=== PATIENT | male | born 1945 | race Caucasian/White ===

== ENCOUNTER 2020-07-29 15:17 | Inpatient (IN) | payer OTHER, SELFPAY ==
[2020-07-29] VITALS (11 sets, daily range): BP systolic 73–117; BP diastolic 46–65; PULSE 58–98; RESP 12–20; TEMP 35.9–40; O2SAT 91–100; BMI 21.8
--- NOTE | 2020-07-29 | XR_ITS ---
EXAMINATION: XR CHEST CLINICAL INFORMATION: Confirm central line placement COMPARISON: 07/29/2020 TECHNIQUE: Frontal view of the chest was obtained. FINDINGS: Catheter entering from the right neck terminating overlying the superior vena cava. There is no evidence for pneumothorax. Lung tucker are unchanged. Mild perihilar markings. XR/XR chest 1V IMPRESSION: Catheter tip overlying the superior vena cava. No pneumothorax
--- NOTE | 2020-07-29 15:53 | ECG_ITS ---
Test Reason : WEAKNESS Blood Pressure : / mmHG Vent. Rate : 084 BPM Atrial Rate : 093 BPM P-R Int : 000 ms QRS Dur : 078 ms QT Int : 438 ms P-R-T Axes : 000 062 -06 degrees QTc Int : 517 ms Atrial fibrillation Nonspecific T wave abnormality Abnormal ECG No previous ECGs available Referred By: Jeremy Vegas Electronically Signed By:SHELLIE SIMS MD
--- NOTE | 2020-07-29 15:53 | XR_ITS ---
EXAMINATION: XR CHEST CLINICAL INFORMATION: Weakness COMPARISON: None TECHNIQUE: AP portable view of the chest was obtained. FINDINGS: Patient status post median sternotomy. The cardiopericardial silhouette is enlarged. No evidence of pulmonary edema. No pneumothorax or pleural effusion. XR/XR chest 1V IMPRESSION: Cardiomegaly without acute parenchymal disease.
[2020-07-29 16:31] LABS: INTERNATIONAL NORM RATIO 2.3 (0.9-1.1); Prothrombin Time 27.1 SEC (10.8-13.0)
[2020-07-29 16:33] LABS: Partial Thromboplastin Time 37.4 SEC (24.1-38.0)
[2020-07-29 16:35] LABS: Hematocrit 36.3 % (42-52); Hemoglobin 11.6 g/dl (14.0-18.0); Imm Gran Abs Auto 0.02 X10*3/uL (0.00-0.03); Imm Gran Pct Auto 0.3 % (0.0-0.4); Lymphocytes Absolute Auto 0.5 X10*3/uL (1.2-4.9); Lymphocytes Percent Auto 8.3 % (20-40); MANUAL DIFF FLAG SCAN; Mean Corpuscular Hemoglobin 32.6 pg (27.0-33.0); Mean Platelet Volume 10.7 fL (9.4-12.4); Monocytes Absolute Auto 0.5 X10*3/uL (0.1-1.2); Neutrophils Absolute Auto 5.2 X10*3/uL (2.0-8.3); Neutrophils Percent Auto 83.4 % (45-73); Platelet Count 144 X10*3/uL (160-400); Red Blood Count 3.56 X10*6/uL (4.60-5.80); SCAN SMEAR FLAG 1; White Blood Count 6.3 X10*3/uL (4.8-10.8)
[2020-07-29 16:46] LABS: Alanine Aminotransferase 25 U/L (0-40); Albumin Level 3.9 g/dL (3.5-5.0); Alkaline Phosphatase 50 U/L (39-117); Anion Gap 13 (12-20); Aspartate Amino Transferase 53 U/L (5-37); Bilirubin Total 1.1 mg/dL (0.0-1.0); Blood Urea Nitrogen 35 mg/dL (9-16); Calcium 8.6 mg/dL (8.4-10.2); Carbon Dioxide 27 mmol/L (22-29); Chloride 105 mmol/L (96-108); Creatinine Clr Calc Pharmacy 51.6; Estimated Glomerular Filt Rate 52; Glucose Random 125 mg/dL (60-115); Potassium 4.1 mmol/l (3.3-5.1); Sodium 141 mmol/L (135-145); Total Protein 6.5 g/dL (6.5-8.0)
[2020-07-29 16:49] LABS: Lactic Acid 2.1 mmol/L (0.5-2.0)
[2020-07-29 16:57] LABS: Troponin-I High Sensitivity 45.3 ng/L (<3.5-35.0)
[2020-07-29 17:05] LABS: SLIDE REVIEW VERIFIED
[2020-07-29] MEDS: Acetaminophen 325 MG TABLET 975 MG PO (17:51)
[2020-07-29] MEDS: dexAMETHasone sod phosphate 4 MG/ML VIAL 6 MG IVPUSH ×2 (17:51→21:04)
[2020-07-29 18:20] LABS: Reflex Lactate? Lactic Acid Added
[2020-07-29] MEDS: 0.9 % Sodium Chloride 1,000 ML 999 ML IV (18:36)
[2020-07-29] MEDS: 0.9 % Sodium Chloride 2,000 ML 999 ML IV (19:00)
--- NOTE | 2020-07-29 19:11 | ED_ITS ---
HPI - Fever General Chief Complaint: Fever <Tiago Hartmann NP - Last Filed: 07/29/20 21:51> Stated Complaint: LOW O2SAT,+COVID PER SNF <Tiago Hartmann NP - Last Filed: 07/29/20 21:51> Time Seen by Provider: 07/29/20 15:33 <Tiago Hartmann NP - Last Filed: 07/29/20 21:51> Source: EMS <Tiago Hartmann NP - Last Filed: 07/29/20 21:51> Mode of arrival: EMS <Tiago Hartmann NP - Last Filed: 07/29/20 21:51> Limitations: altered mental status <Tiago Hartmann NP - Last Filed: 07/29/20 21:51> History of Present Illness HPI Narrative: fever and COVID positive this is a 74-year-old male who presents via EMS from [facility] manner he apparently has dementia who is at baseline confused however alert and able to do certain activities in addition to this he has history of diverticular disease, hypertension, hyperlipidemia, compression fracture of the T11/T12, dysphagia, prosthetic heart valve, cardiomyopathy with prior alcohol abuse who was sent in from the facility with complaint of fever and seeming a little more lethargic today. Patient is 1 of many other residents at this facility apparently tested positive for COVID. Patient at baseline on O2 at 2 L per EMS report. Patient is alert upon arrival and offers no complaints of pain or discomfort. His pulse oximeter bedside reads 95 he is currently on 4 L of oxygen. Transfer form with lab results for his COVID with says COVID positive 08/08/2020 Code status full code <Tiago Hartmann NP - Last Filed: 07/29/20 21:51> MD elicited complaint: fever and weakness <Tiago Hartmann NP - Last Filed: 07/29/20 21:51> Onset (ago): day(s) <Tiago Hartmann NP - Last Filed: 07/29/20 21:51> Context: sick contacts and other(s) with similar symptoms <Tiago Hartmann NP - Last Filed: 07/29/20 21:51> Relieving factors: acetaminophen <Tiago Hartmann NP - Last Filed: 07/29/20 21:51> Associated symptoms: denies other symptoms <Tiago Hartmann, [employer] - Last Filed: 07/29/20 21:51> Treatments prior to arrival fever: acetaminophen <Tiago Hartmann NP - Last Filed: 07/29/20 21:51> Related Data Home Medications: Home Medications Medication Instructions Recorded Confirmed Baby Aspirin 81 mg PO 07/29/20 Lexapro 20 mg PO 07/29/20 atorvastatin 80 mg PO 07/29/20 benzonatate 100 mg PO Q6-8H PRN 07/29/20 07/29/20 calcium carbonate-vitamin D2 1 tab PO 07/29/20 [Calcium + Vitamin D] lisinopril 2.5 mg PO 07/29/20 <Tiago Hartmann NP - Last Filed: 07/29/20 21:51> Allergies/Adverse Reactions: Allergies Allergy/AdvReac Type Severity Reaction Status Date / Time No Known Allergies Allergy Verified 07/29/20 15:52 <Tiago Hartmann NP - Last Filed: 07/29/20 21:51> Review of Systems Review of Systems: states no pain <Tiago Hartmann NP - Last Filed: 07/29/20 21:51> Yes Unobtainable due to mental condition <Tiago Hartmann NP - Last Filed: 07/29/20 21:51> Neurologic: Reports confusion <Tiago Hartmann NP - Last Filed: 07/29/20 21:51> Psychiatric: Psychiatric: Reports confusion <Tiago Hartmann NP - Last Filed: 07/29/20 21:51> [facility] Past Medical History Medical History: Medical History (Updated 07/29/20 @ 21:50 by Tiago Hartmann NP) Atrial fibrillation Cardiomyopathy Compression fracture of T11 vertebra Compression fracture of T12 vertebra Dementia Diverticulosis Dysphagia Hyperlipidemia Hypertension Prosthetic heart valve clot Urinary incontinence, functional Vitamin D deficiency <Tiago Hartmann NP - Last Filed: 07/29/20 21:51> Social History Social History: Social History Alcohol intake: never Smoking Status: Former smoker Smoked in Last 30 Days: No Use of substances other than those prescribed or required for medical reasons: No Advance Directives: No Advance Directives Information Provided: Yes <Tiago Hartmann NP - Last Filed: 07/29/20 21:51> Physical Exam Vital Signs: Vital Signs: Last Vital Signs Temp 97.2 F 07/29/20 22:59 Pulse 77 07/29/20 22:59 Resp 15 07/29/20 22:59 BP 83/46 L 07/29/20 22:59 Pulse Ox 95 07/29/20 22:59 Body Mass Index 21.8 reviewed <Tiago Hartmann NP - Last Filed: 07/29/20 21:51> Vital Signs: Last Vital Signs Temp 97.2 F 07/29/20 22:59 Pulse 77 07/29/20 22:59 Resp 15 07/29/20 22:59 BP 83/46 L 07/29/20 22:59 Pulse Ox 95 07/29/20 22:59 Body Mass Index 21.8 <Radha Pisano MD - Last Filed: 07/29/20 23:44> Const: General: cooperative, confusion and lethargic; No acute distress or intoxicated appearing <Tiago Hartmann NP - Last Filed: 07/29/20 21:51> Nutritional Appearance: cachectic <Tiago Hartmann NP - Last Filed: 07/29/20 21:51> Orientation/consciousness: confusion and lethargic <Tiago Hartmann NP - Last Filed: 07/29/20 21:51> Limitations: other limitations ( dementia) <Tiago Hartmann NP - Last Filed: 07/29/20 21:51> HENMT: Head: Yes normal to inspection <Tiago Hartmann NP - Last Filed: 07/29/20 21:51> Ears: hearing grossly normal bilaterally <Tiago Hartmann NP - Last Filed: 07/29 21:51> Eyes: General: appearance normal, both eyes and all related structures <Tiago Hartmann NP - Last Filed: 07/29/20 21:51> Visual Tucker: normal visual tucker by confrontation <Tiago Hartmann NP - Last Filed: 07/29/20 21:51> Neck: Neck: Yes normal visual inspection and No tender <Tiago Hartmann NP - Last Filed: 07/29/20 21:51> Thyroid: Thyroid normal <Tiago Hartmann NP - Last Filed: 07/29/20 21:51> Chest: Chest palpation & inspection: normal inspection of the chest <Tiago Hartmann NP - Last Filed: 07/29/20 21:51> Resp: Effort & Inspection: normal respiratory effort <[facility] Hartmann, [employer] - Last Filed: 07/29/20 21:51> Cardio: Jugular venous distension: no JVD <[facility] Hartmann, [employer] - Last Filed: 07/29/20 21:51> GI: Inspection: Yes normal to inspection <[facility] Hartmann, [employer] - Last Filed: 07/29/20 21:51> Percussion: Yes normal to percussion <[facility] Mary Kate [employer] - Last Filed: 07/29/20 21:51> Auscultation: normal bowel sounds <[facility] Hartmann, [employer] - Last Filed: 07/29/20 21:51> : General: Yes no CVA tenderness <[facility] Mary Kate [employer] - Last Filed: 07/29/20 21:51> Back/Spine/Pelvis: Back: no CVA tenderness <[facility] Mary Kate [employer] - Last Filed: 07/29/20 21:51> Skin: General skin exam: no rashes or lesions noted <[facility] Mary Kate [employer] - Last Filed: 07/29/20 21:51> Neuro: General: confusion <Tiago Mary Kate [employer] - Last Filed: 07/29/20 21:51> Extrem: General: Yes normal to inspection <[facility] Hartmann, [employer] - Last Filed: 07/29/20 21:51> Course Course Course Narrative: in review 74-year-old male presenting with fever and lethargy in the setting of positive COVID today at the facility with other residents testing positive. Patient at baseline at 2 L requiring slightly more oxygen now at 4 L to maintain his oxygen above 92% otherwise he is demented and offers no other complaints. Febrile upon arrival septic workup initiated including lactic acid and blood work with primary source viral in etiology. Will treat with gradual IV fluids and antipyretics p.r.n.. <Tiago Hartmann NP - Last Filed: 07/29/20 21:51> patient had already been admitted to the hospitalist. Dr Blu Anderson informed me that the patient already had 3 L of normal saline, patient's blood pressure is in the low 80s. Patient is being transferred to intensive care unit, I inserted a central line in the right IJ, patient tolerated well the procedure. Patient was started on pressors, Levophed. <Radha Pisano MD - Last Filed: 07/29/20 23:44> Reevaluation(s) Reevaluation #1: 1553 chest x-ray shows no evidence of acute pulmonary edema or parenchymal, will disease. Positive cardiomegaly. Remainder labs still pending. BP on the softer side fluid resuscitation in progress. <Tiago Hartmann NP - Last Filed: 07/29/20 21:51> Reevaluation #2: Fever remains high at 103 will be given additional fluids, Motrin p.o.. Was placed on a cooling blanket with Washburn catheter with core temperature monitoring. Patient remains relatively comfortable does not seem to be any acute distress. Aside from the low BP his respiratory status remains stable. meets sepsis criteria with the tachycardia, hypertension, fever. Causative etiology is most likely viral in etiology from COVID-19 as this was confirmed today and not bacterial. <Tiago Hartmann NP - Last Filed: 07/29/20 21:51> Reevaluation #3: Blood pressure improving. Was given dexamethasone for COVID-19, CT of the chest ordered given the continued high fever rule out superimposed pathology. <Tiago Hartmann NP - Last Filed: 07/29/20 21:51> Consultations Consultation #1: 1999 Sepsis focused exam completed. Case discussed with hospitalist for admission request further BP monitoring if remains stable can go to a telemetry unit. <Tiago Hartmann NP - Last Filed: 07/29/20 21:51> Consultation #2: 3133 BP has remained stable in the ED last blood pressure was 117/52. Patient will be admitted to hospitalist services. <Tiago Hartmann NP - Last Filed: 07/29/20 21:51> Procedures Central Line Placement Right IJ: Time Out Performed: Yes <Radha Pisano MD - Last Filed: 07/29/20 23:44> Patient Placed on Monitor/Pulse Ox: Yes <Radha Pisano MD - Last Filed: 07/29/20 23:44> MD Prep: mask, gown and gloves <Radha Pisano MD - Last Filed: 07/29/20 23:44> Central Line Prep: Chlorhexidine scrub <Radha Pisano MD - Last Filed: 07/29/20 23:44> Local Anesthetic: lidocaine 1% <Radha Pisano MD - Last Filed: 07/29/20 23:44> Amount of anesthesia used (mL): 5 <Radha Pisano MD - Last Filed: 07/29/20 23:44> Ultrasound Used for Placement: Yes <Radha Pisano MD - Last Filed: 07/29/20 23:44> Central Line Lumen Inserted: triple <Radha Pisano MD - Last Filed: 07/29/20 23:44> Post Procedure: sutured in place, good blood return, all ports aspirated, flushed, capped and sterile dressing applied <Radha Pisano MD - Last Filed: 07/29/20 23:44> Post Procedure X-Ray: tip of catheter in good position and no pneumothorax seen <Radha Pisano MD - Last Filed: 07/29/20 23:44> Patient Tolerated Procedure: well <Radha Pisano MD - Last Filed: 07/29/20 23:44> Complications: none <Radha Pisano MD - Last Filed: 07/29/20 23:44> MDM - Fever Differential Diagnosis Differential diagnosis: Likely viral infection ( COVID-19), sepsis and influenza <Tiago Hartmann NP - Last Filed: 07/29/20 21:51> Medical Records Attestation: I reviewed the patient's medical records. <Tiago Hartmann NP - Last Filed: 07/29/20 21:51> Medical records narrative: patient has about 20 pages of records transferred from the facility including advanced directives, transfer she with COVID status, medication and past medical history which was all reviewed. <Tiago Hartmann NP - Last Filed: 1 09/29/19 21:51> Lab Data Attestation: I reviewed the patient's lab results. <Tiago Hartmann NP - Last Filed: 12/13 21:51> Result diagrams: : 07/29/20 16:10 07/29/20 16:11 <Tiago Hartmann NP - Last Filed: 07/29/20 21:51> Labs: Lab Results 07/29/20 07/29/20 07/29/20 Range/Units 16:10 16:11 16:11 WBC 6.3 (4.8-10.8) X10*3/uL RBC 3.56 L (4.60-5.80) X10*6/uL Hgb 11.6 L (14.0-18.0) g/dl Hct 36.3 L (42-52) % MCV 102.0 H (80-98) fL MCH 32.6 (27.0-33.0) pg MCHC 32.0 (31.0-36.0) g/dl RDW 13.0 (11.0-16.0) % Plt Count 144 L (160-400) X10*3/uL MPV 10.7 (9.4-12.4) fL Immature Gran % (Auto) 0.3 (0.0-0.4) % Neut % (Auto) 83.4 H (45-73) % Lymph % (Auto) 8.3 L (20-40) % [place] % (Auto) 8.0 (2-11) % Eos % (Auto) 0.0 (0-4) % Baso % (Auto) 0.0 (0-2) % Lymph # (Auto) 0.5 L (1.2-4.9) X10*3/uL [place] # (Auto) 0.5 (0.1-1.2) X10*3/uL Eos # (Auto) 0.0 (0.0-0.4) X10*3/uL Baso # (Auto) 0.0 (0.0-0.2) X10*3/uL Abs Immat Gran (auto) 0.02 (0.00-0.03) X10*3/uL Absolute Neuts (auto) 5.2 (2.0-8.3) X10*3/uL Absolute Nucleated RBC 0.000 (0.0-0.012) X10*3/uL Nucleated RBC % (auto) 0.0 (0.0-0.2) /100WBC Smear Tech's Comments VERIFIED PT 27.1 H (10.8-13.0) SEC INR 2.3 H (0.9-1.1) APTT 37.4 (24.1-38.0) SEC Sodium 141 (135-145) mmol/L Potassium 4.1 (3.3-5.1) mmol/l Chloride 105 (96-108) mmol/L Carbon Dioxide 27 (22-29) mmol/L Anion Gap 13 (12-20) BUN 35 H (9-16) mg/dL Creatinine 1.35 (0.5-1.4) mg/dL Estim Creat Clear Calc 51.6 Estimated GFR 52 Random Glucose 125 H (60-115) mg/dL Lactic Acid (0.5-2.0) mmol/L Lactic Acid Fup @ 2Hr (0.5-2.0) mmol/L Calcium 8.6 (8.4-10.2) mg/dL Total Bilirubin 1.1 H (0.0-1.0) mg/dL AST 53 H (5-37) U/L ALT 25 (0-40) U/L Alkaline Phosphatase 50 (39-117) U/L Troponin I High Sens (<3.5-35.0) ng/L Total Protein 6.5 (6.5-8.0) g/dL Albumin 3.9 (3.5-5.0) g/dL Urine Color Urine Appearance Urine pH (5.0-8.0) Ur Specific [place] (1.005-1.025) Urine Protein (NEG-TRACE) MG/DL Urine Glucose (UA) (NEG) MG/DL Urine Ketones (NEG) MG/DL Urine Blood (NEG) Urine Nitrite (NEG) Ur Leukocyte Esterase (NEG) Urine RBC (0) /HPF Urine WBC (0-4) /HPF Ur Squamous Epith Cells /LPF Amorphous Sediment /LPF Urine Bacteria /LPF 07/29/20 07/29/20 07/29/20 Range/Units 16:11 16:11 19:00 WBC (4.8-10.8) X10*3/uL RBC (4.60-5.80) X10*6/uL Hgb (14.0-18.0) g/dl Hct (42-52) % MCV (80-98) fL MCH (27.0-33.0) pg MCHC (31.0-36.0) g/dl RDW (11.0-16.0) % Plt Count (160-400) X10*3/uL MPV (9.4-12.4) fL Immature Gran % (Auto) (0.0-0.4) % Neut % (Auto) (45-73) % Lymph % (Auto) (20-40) % [place] % (Auto) (2-11) % Eos % (Auto) (0-4) % Baso % (Auto) (0-2) % Lymph # (Auto) (1.2-4.9) X10*3/uL [place] # (Auto) (0.1-1.2) X10*3/uL Eos # (Auto) (0.0-0.4) X10*3/uL Baso # (Auto) (0.0-0.2) X10*3/uL Abs Immat Gran (auto) (0.00-0.03) X10*3/uL Absolute Neuts (auto) (2.0-8.3) X10*3/uL Absolute Nucleated RBC (0.0-0.012) X10*3/uL Nucleated RBC % (auto) (0.0-0.2) /100WBC Smear Tech's Comments PT (10.8-13.0) SEC INR (0.9-1.1) APTT (24.1-38.0) SEC Sodium (135-145) mmol/L Potassium (3.3-5.1) mmol/l Chloride (96-108) mmol/L Carbon Dioxide (22-29) mmol/L Anion Gap (12-20) BUN (9-16) mg/dL Creatinine (0.5-1.4) mg/dL Estim Creat Clear Calc Estimated GFR Random Glucose (60-115) mg/dL Lactic Acid 2.1 H* (0.5-2.0) mmol/L Lactic Acid Fup @ 2Hr 1.2 (0.5-2.0) mmol/L Calcium (8.4-10.2) mg/dL Total Bilirubin (0.0-1.0) mg/dL AST (5-37) U/L ALT (0-40) U/L Alkaline Phosphatase (39-117) U/L Troponin I High Sens 45.3 H (<3.5-35.0) ng/L Total Protein (6.5-8.0) g/dL Albumin (3.5-5.0) g/dL Urine Color Urine Appearance Urine pH (5.0-8.0) Ur Specific [place] (1.005-1.025) Urine Protein (NEG-TRACE) MG/DL Urine Glucose (UA) (NEG) MG/DL Urine Ketones (NEG) MG/DL Urine Blood (NEG) Urine Nitrite (NEG) Ur Leukocyte Esterase (NEG) Urine RBC (0) /HPF Urine WBC (0-4) /HPF Ur Squamous Epith Cells /LPF Amorphous Sediment /LPF Urine Bacteria /LPF 07/29/20 07/29/20 Range/Units 19:38 19:38 WBC (4.8-10.8) X10*3/uL RBC (4.60-5.80) X10*6/uL Hgb (14.0-18.0) g/dl Hct (42-52) % MCV (80-98) fL MCH (27.0-33.0) pg MCHC (31.0-36.0) g/dl RDW (11.0-16.0) % Plt Count (160-400) X10*3/uL MPV (9.4-12.4) fL Immature Gran % (Auto) (0.0-0.4) % Neut % (Auto) (45-73) % Lymph % (Auto) (20-40) % [place] % (Auto) (2-11) % Eos % (Auto) (0-4) % Baso % (Auto) (0-2) % Lymph # (Auto) (1.2-4.9) X10*3/uL [place] # (Auto) (0.1-1.2) X10*3/uL Eos # (Auto) (0.0-0.4) X10*3/uL Baso # (Auto) (0.0-0.2) X10*3/uL Abs Immat Gran (auto) (0.00-0.03) X10*3/uL Absolute Neuts (auto) (2.0-8.3) X10*3/uL Absolute Nucleated RBC (0.0-0.012) X10*3/uL Nucleated RBC % (auto) (0.0-0.2) /100WBC Smear Tech's Comments PT (10.8-13.0) SEC INR (0.9-1.1) APTT (24.1-38.0) SEC Sodium (135-145) mmol/L Potassium (3.3-5.1) mmol/l Chloride (96-108) mmol/L Carbon Dioxide (22-29) mmol/L Anion Gap (12-20) BUN (9-16) mg/dL Creatinine (0.5-1.4) mg/dL Estim Creat Clear Calc Estimated GFR Random Glucose (60-115) mg/dL Lactic Acid (0.5-2.0) mmol/L Lactic Acid Fup @ 2Hr (0.5-2.0) mmol/L Calcium (8.4-10.2) mg/dL Total Bilirubin (0.0-1.0) mg/dL AST (5-37) U/L ALT (0-40) U/L Alkaline Phosphatase (39-117) U/L Troponin I High Sens 45.7 H (<3.5-35.0) ng/L Total Protein (6.5-8.0) g/dL Albumin (3.5-5.0) g/dL Urine Color YELLOW Urine Appearance CLEAR Urine pH 5.5 (5.0-8.0) Ur Specific [place] >= 1.030 H (1.005-1.025) Urine Protein TRACE (NEG-TRACE) MG/DL Urine Glucose (UA) NEG (NEG) MG/DL Urine Ketones NEG (NEG) MG/DL Urine Blood NEG (NEG) Urine Nitrite NEG (NEG) Ur Leukocyte Esterase NEG (NEG) Urine RBC 0-2 (0) /HPF Urine WBC 0 (0-4) /HPF Ur Squamous Epith Cells NONE /LPF Amorphous Sediment 1+ /LPF Urine Bacteria NONE /LPF <Tiago Hartmann NP - Last Filed: 07/29/20 21:51> Lab Results 07/29/20 07/29/20 07/29/20 Range/Units 16:10 16:11 16:11 WBC 6.3 (4.8-10.8) X10*3/uL RBC 3.56 L (4.60-5.80) X10*6/uL Hgb 11.6 L (14.0-18.0) g/dl Hct 36.3 L (42-52) % MCV 102.0 H (80-98) fL MCH 32.6 (27.0-33.0) pg MCHC 32.0 (31.0-36.0) g/dl RDW 13.0 (11.0-16.0) % Plt Count 144 L (160-400) X10*3/uL MPV 10.7 (9.4-12.4) fL Immature Gran % (Auto) 0.3 (0.0-0.4) % Neut % (Auto) 83.4 H (45-73) % Lymph % (Auto) 8.3 L (20-40) % [place] % (Auto) 8.0 (2-11) % Eos % (Auto) 0.0 (0-4) % Baso % (Auto) 0.0 (0-2) % Lymph # (Auto) 0.5 L (1.2-4.9) X10*3/uL [place] # (Auto) 0.5 (0.1-1.2) X10*3/uL Eos # (Auto) 0.0 (0.0-0.4) X10*3/uL Baso # (Auto) 0.0 (0.0-0.2) X10*3/uL Abs Immat Gran (auto) 0.02 (0.00-0.03) X10*3/uL Absolute Neuts (auto) 5.2 (2.0-8.3) X10*3/uL Absolute Nucleated RBC 0.000 (0.0-0.012) X10*3/uL Nucleated RBC % (auto) 0.0 (0.0-0.2) /100WBC Smear Tech's Comments VERIFIED PT 27.1 H (10.8-13.0) SEC INR 2.3 H (0.9-1.1) APTT 37.4 (24.1-38.0) SEC Sodium 141 (135-145) mmol/L Potassium 4.1 (3.3-5.1) mmol/l Chloride 105 (96-108) mmol/L Carbon Dioxide 27 (22-29) mmol/L Anion Gap 13 (12-20) BUN 35 H (9-16) mg/dL Creatinine 1.35 (0.5-1.4) mg/dL Estim Creat Clear Calc 51.6 Estimated GFR 52 Random Glucose 125 H (60-115) mg/dL Lactic Acid (0.5-2.0) mmol/L Lactic Acid Fup @ 2Hr (0.5-2.0) mmol/L Calcium 8.6 (8.4-10.2) mg/dL Total Bilirubin 1.1 H (0.0-1.0) mg/dL AST 53 H (5-37) U/L ALT 25 (0-40) U/L Alkaline Phosphatase 50 (39-117) U/L Troponin I High Sens (<3.5-35.0) ng/L Total Protein 6.5 (6.5-8.0) g/dL Albumin 3.9 (3.5-5.0) g/dL Urine Color Urine Appearance Urine pH (5.0-8.0) Ur Specific [place] (1.005-1.025) Urine Protein (NEG-TRACE) MG/DL Urine Glucose (UA) (NEG) MG/DL Urine Ketones (NEG) MG/DL Urine Blood (NEG) Urine Nitrite (NEG) Ur Leukocyte Esterase (NEG) Urine RBC (0) /HPF Urine WBC (0-4) /HPF Ur Squamous Epith Cells /LPF Amorphous Sediment /LPF Urine Bacteria /LPF 07/29/20 07/29/20 07/29/20 Range/Units 16:11 16:11 19:00 WBC (4.8-10.8) X10*3/uL RBC (4.60-5.80) X10*6/uL Hgb (14.0-18.0) g/dl Hct (42-52) % MCV (80-98) fL MCH (27.0-33.0) pg MCHC (31.0-36.0) g/dl RDW (11.0-16.0) % Plt Count (160-400) X10*3/uL MPV (9.4-12.4) fL Immature Gran % (Auto) (0.0-0.4) % Neut % (Auto) (45-73) % Lymph % (Auto) (20-40) % [place] % (Auto) (2-11) % Eos % (Auto) (0-4) % Baso % (Auto) (0-2) % Lymph # (Auto) (1.2-4.9) X10*3/uL [place] # (Auto) (0.1-1.2) X10*3/uL Eos # (Auto) (0.0-0.4) X10*3/uL Baso # (Auto) (0.0-0.2) X10*3/uL Abs Immat Gran (auto) (0.00-0.03) X10*3/uL Absolute Neuts (auto) (2.0-8.3) X10*3/uL Absolute Nucleated RBC (0.0-0.012) X10*3/uL Nucleated RBC % (auto) (0.0-0.2) /100WBC Smear Tech's Comments PT (10.8-13.0) SEC INR (0.9-1.1) APTT (24.1-38.0) SEC Sodium (135-145) mmol/L Potassium (3.3-5.1) mmol/l Chloride (96-108) mmol/L Carbon Dioxide (22-29) mmol/L Anion Gap (12-20) BUN (9-16) mg/dL Creatinine (0.5-1.4) mg/dL Estim Creat Clear Calc Estimated GFR Random Glucose (60-115) mg/dL Lactic Acid 2.1 H* (0.5-2.0) mmol/L Lactic Acid Fup @ 2Hr 1.2 (0.5-2.0) mmol/L Calcium (8.4-10.2) mg/dL Total Bilirubin (0.0-1.0) mg/dL AST (5-37) U/L ALT (0-40) U/L Alkaline Phosphatase (39-117) U/L Troponin I High Sens 45.3 H (<3.5-35.0) ng/L Total Protein (6.5-8.0) g/dL Albumin (3.5-5.0) g/dL Urine Color Urine Appearance Urine pH (5.0-8.0) Ur Specific [place] (1.005-1.025) Urine Protein (NEG-TRACE) MG/DL Urine Glucose (UA) (NEG) MG/DL Urine Ketones (NEG) MG/DL Urine Blood (NEG) Urine Nitrite (NEG) Ur Leukocyte Esterase (NEG) Urine RBC (0) /HPF Urine WBC (0-4) /HPF Ur Squamous Epith Cells /LPF Amorphous Sediment /LPF Urine Bacteria /LPF 07/29/20 07/29/20 Range/Units 19:38 19:38 WBC (4.8-10.8) X10*3/uL RBC (4.60-5.80) X10*6/uL Hgb (14.0-18.0) g/dl Hct (42-52) % MCV (80-98) fL MCH (27.0-33.0) pg MCHC (31.0-36.0) g/dl RDW (11.0-16.0) % Plt Count (160-400) X10*3/uL MPV (9.4-12.4) fL Immature Gran % (Auto) (0.0-0.4) % Neut % (Auto) (45-73) % Lymph % (Auto) (20-40) % [place] % (Auto) (2-11) % Eos % (Auto) (0-4) % Baso % (Auto) (0-2) % Lymph # (Auto) (1.2-4.9) X10*3/uL [place] # (Auto) (0.1-1.2) X10*3/uL Eos # (Auto) (0.0-0.4) X10*3/uL Baso # (Auto) (0.0-0.2) X10*3/uL Abs Immat Gran (auto) (0.00-0.03) X10*3/uL Absolute Neuts (auto) (2.0-8.3) X10*3/uL Absolute Nucleated RBC (0.0-0.012) X10*3/uL Nucleated RBC % (auto) (0.0-0.2) /100WBC Smear Tech's Comments PT (10.8-13.0) SEC INR (0.9-1.1) APTT (24.1-38.0) SEC Sodium (135-145) mmol/L Potassium (3.3-5.1) mmol/l Chloride (96-108) mmol/L Carbon Dioxide (22-29) mmol/L Anion Gap (12-20) BUN (9-16) mg/dL Creatinine (0.5-1.4) mg/dL Estim Creat Clear Calc Estimated GFR Random Glucose (60-115) mg/dL Lactic Acid (0.5-2.0) mmol/L Lactic Acid Fup @ 2Hr (0.5-2.0) mmol/L Calcium (8.4-10.2) mg/dL Total Bilirubin (0.0-1.0) mg/dL AST (5-37) U/L ALT (0-40) U/L Alkaline Phosphatase (39-117) U/L Troponin I High Sens 45.7 H (<3.5-35.0) ng/L Total Protein (6.5-8.0) g/dL Albumin (3.5-5.0) g/dL Urine Color YELLOW Urine Appearance CLEAR Urine pH 5.5 (5.0-8.0) Ur Specific [place] >= 1.030 H (1.005-1.025) Urine Protein TRACE (NEG-TRACE) MG/DL Urine Glucose (UA) NEG (NEG) MG/DL Urine Ketones NEG (NEG) MG/DL Urine Blood NEG (NEG) Urine Nitrite NEG (NEG) Ur Leukocyte Esterase NEG (NEG) Urine RBC 0-2 (0) /HPF Urine WBC 0 (0-4) /HPF Ur Squamous Epith Cells NONE /LPF Amorphous Sediment 1+ /LPF Urine Bacteria NONE /LPF <Radha Pisano MD - Last Filed: 07/29/20 23:44> Imaging Data CT scan - chest: My impression: I personally reviewed the x-ray, Central line in place, no pneumothorax seen, radiology read pending <Radha Pisano MD - Last Filed: 07/29/20 23:44> Critical Care Time Critical Care Time Critical Care Time: Yes <Tiago Hartmann NP - Last Filed: 07/29/20 21:51> Total Critical Care Time: 65 <Tiago Hartmann NP - Last Filed: 07/29/20 21:51> Attestation: 74-year-old relatively complicated history requiring multiple re-evalua tions at bedside for monitoring of respiratory status as well as fluid resuscitation for hypertension. <Tiago Hartmann NP - Last Filed: 07/29/20 21:51> Discharge Plan Discharge Clinical Impression: COVID-19, Sepsis, Acute hypotension, Viral syndrome <Tiago Hartmann NP - Last Filed: 07/29/20 21:51> Prescriptions: No Action benzonatate 100 mg Capsule 100 mg PO Q6-8H PRN (Reason: Cough) RF: 0 Calcium + Vitamin D 600 mg calcium- 200 unit Tablet 1 tab PO RF: 0 Baby Aspirin 81 mg PO RF: 0 Lexapro 20 mg PO RF: 0 atorvastatin 80 mg PO RF: 0 lisinopril 2.5 mg PO RF: 0 <Tiago Hartmann NP - Last Filed: 07/29/20 21:51>
--- NOTE | 2020-07-29 19:12 | CT_ITS ---
EXAMINATION: CT CHEST WITHOUT CONTRAST CLINICAL INFORMATION: Fever COMPARISON: Chest radiograph earlier today TECHNIQUE: Multidetector volumetric CT imaging of the chest was done. Axial MIP volume rendering provided. Sagittal and coronal reformatted images were obtained. This CT examination was performed using dose optimization techniques as appropriate, variously including the following: *Automated exposure control *Adjustment of mA and/or kV according to patient size (this includes techniques or standardized protocols for targeted exams where dose is matched to indication/reason for exam; i.e. extremities or head) *Use of iterative reconstruction technique DLP: 374 mGy-cm FINDINGS: LUNGS: Dependent atelectasis/infiltrate is present. No suspicious lung masses are seen. MEDIASTINUM: An air-fluid level is noted in the upper esophagus. No mediastinal or hilar lymphadenopathy is seen. The heart is enlarged. An atrial clip appears to be present. Patient status post median sternotomy. PLEURA: There is no pleural effusion. No pleural mass or thickening. AXILLA: No lymphadenopathy. UPPER ABDOMEN: 2 layering small 5 mm gallstones are seen in the partially imaged gallbladder. OSSEOUS STRUCTURES: Unremarkable. CT/CT chest wo con IMPRESSION: Bibasilar infiltrates/atelectasis. Findings could be due to aspiration or infiltrate. Cardiomegaly without CHF
[2020-07-29] MEDS: Ibuprofen 800 MG TABLET PO (19:20)
[2020-07-29 19:31] LABS: ~Lactic Acid-LAB USE ONLY 1.2 mmol/L (0.5-2.0)
[2020-07-29 19:50] LABS: Glucose Urine UA NEG (NEG); Leukocyte Esterase Urine NEG (NEG); Nitrite Urine NEG (NEG); PH 5.5 (5.0-8.0); Specific Gravity - Urine >= 1.030 (1.005-1.025); Urine Blood NEG (NEG); Urine Ketones NEG (NEG); Urine Protein TRACE MG/DL (NEG-TRACE)
[2020-07-29 19:52] LABS: Appearance Urine CLEAR; Color Urine YELLOW
[2020-07-29 20:26] LABS: Troponin-I High Sensitivity 45.7 ng/L (<3.5-35.0)
[2020-07-29 20:34] LABS: Amorphous Sediment Urine 1+ /LPF; RBC Urine 0-2 /HPF (0); WBC Urine 0 /HPF (0-4)
[2020-07-29] MEDS: Piperacillin Sodium/Tazobactam 4.5 GM in 0.9 % Sodium Chloride 100 ML IV (21:11)
[2020-07-29] MEDS: vancomycin HCL 1,000 MG in 0.9 % Sodium Chloride 250 ML 270 MG IV (22:16)
--- NOTE | 2020-07-29 23:29 | PC.NURSE ---
1899: arrived on shift to find pt rectal 104. cooling blanket immedately applied. 2L NS infused via sepsis protocol. patient recived 1 L from previous shift. pa 1999: pt remains in mild [place]. Facility updated on status. Pt remains hypotesive. MLP arti aware. Full code. Pt takes nectar thickend liquids and crushed pills in apple sauce. 2029: condition remains the same. pipercillin infused. Fever now 100.6. Now more verbal I'm cold. 2129: BP improved. Pt now off cooling blanket. 2199: pt vs remain the same. 2330: Central line placed without incident
--- NOTE | 2020-07-29 23:46 | PC.NURSE ---
per okay to use central line at time.
--- NOTE | 2020-07-29 23:51 | PC.NURSE ---
2350: map 70, hr 69, spo2 100%, bp 100/55. pt taken out of [place] at this time. continuing to monitor ca=q 5 minutes for need to titrate drip.
[2020-07-30] VITALS (25 sets, daily range): BP systolic 82–136; BP diastolic 41–80; PULSE 51–70; RESP 10–54; TEMP 35–36.5; O2SAT 90–100; BMI 22.6
--- NOTE | 2020-07-30 00:02 | PC.NURSE ---
hr 58, bp 93/57, map of 67. contact made to rashida kern. mary navarrete will fax over molst and hcp form.
--- NOTE | 2020-07-30 00:13 | P.HPCC_ITS ---
History of Present Illness Date of Service: 07/30/20 Chief Complaint: Viral Sepsis/ COVID 19 Patient is a 74-year-old male with underlying history of Alzheimer's dementia who resides at a local detention, has underlying history of diverticulosis, vitamin-D deficiency, urinary incontinence, hypertension, hyperlipidemia, compression fractures of T11 and T12 vertebra raise, dysphagia, prosthetic heart valve and clot, cardiomyopathy, atrial fibrillation but I do not think he is on blood thinners. Apparently the patient tested positive at senior care facility. Reportedly the patient developed a fever at the facility and seemed more lethargic today, apparently the patient is 1 of many other residents who tested positive for COVID with questionable date of 07/09/2020, the actual test date is unknown, initial symptomatology is unknown. On arrival, the patient apparently was satting 95% on 4 L nasal cannula; when his baseline uses 2 L. In the ER, the patient had a full workup, however he was constantly hypotensive and given his fever, notable infiltrates on CT, he was given 3 L of fluids and started on vancomycin and Zosyn. Regardless the patien?s blood pressure did not improve and a central line was placed, the patient was started on Levophed. ROS: Patient is confused, unable to give a review of systems. Past Medical History: As above Past Surgical History: As above Family history: Unknown Social History: Lives at local detention ; Devices: Unknown Smoker: Former smoker Etoh hx: prior history None Drug hx: None CODE STATUS: FULL CODE Baseline Functionality: UNKNOWN Allergies: NO KNOWN DRUG ALLERGIES Home Medications: PLEASE SEE [facility] Dedicated sepsis exam done at 1:00 a.m. in the morning VS: 123/76, HEART RATE 65, RESPIRATIONS 18, O2 SAT 100% ON TEMPERATURE 96.8?. General: Alert oriented x2 not to time, no acute distress. Speaking full sentences. Speech is well articulated, thought process is coherent. Following basic commands. Skin: Intact, no lesions, edema, erythema, clubbing or cyanosis. No ulcers. HEENT: Head is normocephalic, atraumatic, pupils equal round reactive to light accommodation bilaterally. Extraocular movements unable to assess. Buccal mucosa is dry, Neck is supple without lymphadenopathy. Cardiac: Clear S1-S2, no murmurs rubs or gallops. Right IJ central line. Pulmonary: Slight wheezing bilaterally and throughout on expiration, minor rho nchi at the right base, no crackles or rales. Abdomen: Protuberant, positive bowel sounds in all 4 quadrants. Soft, nontender, no rebound or guarding. Musculoskeletal: Moving all 4 extremities upon request a major joints, there is no crepitus or tenderness. The strength is 5/5 bilaterally and throughout all 4 extremities. Gait not assessed at this point. Neurologic: As above, No focal deficits noted. Motor strength as above. Vascular: 2+ pulses upper and lower extremities distally. Capillary refill less than 2 seconds of the upper lower extremity is fingers and toes. SIGNIFICANT LABORATORY DATA: White blood cells 6.3, hemoglobin 11.6, hematocrit 36.3, platelet count 144. PTT 27.1, INR 2.3, PTT 37.4. Sodium 141, potassium 4.1, chloride 105, carbon dioxide 27, anion gap 13, BUN 35, creatinine 1.35, GFR 52, random glucose 125. Current lactic acid 1.8 (decreased from 2.1.) LFTs normal, urine negative. Troponin 45.7 REVIEW OF IMAGES: Chest x-ray Cardiomegaly without acute parenchymal disease. Catheter tip overlying the superior vena cava. No pneumothorax Chest CT Bibasilar infiltrates/atelectasis. Findings could be due to aspiration or infiltrate. Cardiomegaly without CHF EKG REVIEW: To be obtained ASSESSMENT AND PLAN: 1. Sepsis likely due to aspiration PNA vs nosocomial and less likely Viral as his COVID test reportertly was positive 07/09/20 and does not show this nasreen earance on CT. 2. COVID-19 infection likely non active 3. Acute kidney injury due to vol depletion and BEAR 4. Dehydration 5. Abnormal troponin, likely reactive 6. Essential hypertension 7. Chronic dementia 8. Chronic dysphagia increasing risk of aspiration Admit to ICU, monitor vital signs, I's and O's, COVID laboratories; will clarify the onset of symptomatology before deciding the typo treatment will give this patient; for reportedly he was tested on 07/09/2020. For now will start him on Solumedrol and nebulizers. Given the possibility of aspiration / nosocomial pneumonia, I will start him on vancomycin and Zosyn given that he comes from a senior care facility as well. IV fluids, repeat labs in the morning.Keep NPO until formal swallow eval is done. Will repeat respiratory panel including RSV, influenza, COVID. GI PROPHYLAXIS: Protonix IV DVT PROPHYLAXIS: INR is elevated, pneumatic stockings for now, will clarify his on blood thinners at the detention. Critical care time used for critical evaluation of this patient, diagnosis, treatment and coordination of care, review her records and documentation TOTAL CRITICAL CARE TIME 90 MIN . Patient's care was discussed in detail with Dr. Vegas. He is aware of all the above as well as the plan of care for this patient. Review of Systems Neurologic: Reports confusion Psychiatric: Psychiatric: Reports confusion [facility] Past Medical History Medical History (Updated 07/29/20 @ 21:50 by Tiago Hartmann NP) Atrial fibrillation Cardiomyopathy Compression fracture of T11 vertebra Compression fracture of T12 vertebra Dementia Diverticulosis Dysphagia Hyperlipidemia Hypertension Prosthetic heart valve clot Urinary incontinence, functional Vitamin D deficiency Social History Social History Household Members: Other Housing: Care Home Housing Other:: [facility] Alcohol intake: never Smoking Status: Former smoker Tobacco Type: Cigarette Smoked in Last 30 Days: No Use of substances other than those prescribed or required for medical reasons: Unable to respond Advance Directives: No Advance Directives Information Provided: Yes Advance Directives on File: No Recently lost weight without trying: Unsure Meds Allergies Allergy/AdvReac Type Severity Reaction Status Date / Time No Known Allergies Allergy Verified 07/29/20 15:52 Home Medications Medication Instructions Recorded Confirmed Type Baby Aspirin 81 mg PO 07/29/20 History Lexapro 20 mg PO 07/29/20 History atorvastatin 80 mg PO 07/29/20 History benzonatate 100 mg PO Q6-8H PRN 07/29/20 07/29/20 History calcium carbonate-vitamin D2 1 tab PO 07/29/20 History [Calcium + Vitamin D] lisinopril 2.5 mg PO 07/29/20 History Physical Exam Vital Signs: Vital Signs: Last Vital Signs Temp 96.6 F L 07/29/20 23:56 Pulse 58 07/29/20 23:56 Resp 12 07/29/20 23:56 BP 93/52 L 07/29/20 23:56 Pulse Ox 100 07/29/20 23:56 Body Mass Index 21.8 Const: General: confusion Orientation/consciousness: confusion Neuro: General: confusion Results Labs CBC and Chem 7: 07/29/20 16:10 07/29/20 16:11 Labs: Laboratory Results - last 24 hr 07/29/20 07/29/20 07/29/20 16:10 16:11 16:11 MCV 102.0 H MCH 32.6 MCHC 32.0 RDW 13.0 Plt Count 144 L MPV 10.7 Immature Gran % (Auto) 0.3 Neut % (Auto) 83.4 H Lymph % (Auto) 8.[address] [place] % (Auto) 8.0 Eos % (Auto) 0.0 Baso % (Auto) 0.0 Lymph # (Auto) 0.[address] [place] # (Auto) 0.5 Eos # (Auto) 0.0 Baso # (Auto) 0.0 Abs Immat Gran (auto) 0.02 Absolute Neuts (auto) 5.2 Absolute Nucleated RBC 0.000 Nucleated RBC % (auto) 0.0 Smear Tech's Comments VERIFIED PT 27.1 H INR 2.3 H APTT 37.4 Anion Gap 13 Estim Creat Clear Calc 51.6 Estimated GFR 52 Random Glucose 125 H Lactic Acid Lactic Acid Fup @ 2Hr Calcium 8.6 Total Bilirubin 1.1 H AST 53 H ALT 25 Alkaline Phosphatase 50 Troponin I High Sens Total Protein 6.5 Albumin 3.9 Urine Color Urine Appearance Urine pH Ur Specific [place] Urine Protein Urine Glucose (UA) Urine Ketones Urine Blood Urine Nitrite Ur Leukocyte Esterase Urine RBC Urine WBC Ur Squamous Epith Cells Amorphous Sediment Urine Bacteria 07/29/20 07/29/20 07/29/20 16:11 16:11 19:00 MCV MCH MCHC RDW Plt Count MPV Immature Gran % (Auto) Neut % (Auto) Lymph % (Auto) [place] % (Auto) Eos % (Auto) Baso % (Auto) Lymph # (Auto) [place] # (Auto) Eos # (Auto) Baso # (Auto) Abs Immat Gran (auto) Absolute Neuts (auto) Absolute Nucleated RBC Nucleated RBC % (auto) Smear Tech's Comments PT INR APTT Anion Gap Estim Creat Clear Calc Estimated GFR Random Glucose Lactic Acid 2.1 H* Lactic Acid Fup @ 2Hr 1.2 Calcium Total Bilirubin AST ALT Alkaline Phosphatase Troponin I High Sens 45.3 H Total Protein Albumin Urine Color Urine Appearance Urine pH Ur Specific [place] Urine Protein Urine Glucose (UA) Urine Ketones Urine Blood Urine Nitrite Ur Leukocyte Esterase Urine RBC Urine WBC Ur Squamous Epith Cells Amorphous Sediment Urine Bacteria 07/29/20 07/29/20 19:38 19:38 MCV MCH MCHC RDW Plt Count MPV Immature Gran % (Auto) Neut % (Auto) Lymph % (Auto) [place] % (Auto) Eos % (Auto) Baso % (Auto) Lymph # (Auto) [place] # (Auto) Eos # (Auto) Baso # (Auto) Abs Immat Gran (auto) Absolute Neuts (auto) Absolute Nucleated RBC Nucleated RBC % (auto) Smear Tech's Comments PT INR APTT Anion Gap Estim Creat Clear Calc Estimated GFR Random Glucose Lactic Acid Lactic Acid Fup @ 2Hr Calcium Total Bilirubin AST ALT Alkaline Phosphatase Troponin I High Sens 45.7 H Total Protein Albumin Urine Color YELLOW Urine Appearance CLEAR Urine pH 5.5 Ur Specific [place] >= 1.030 H Urine Protein TRACE Urine Glucose (UA) NEG Urine Ketones NEG Urine Blood NEG Urine Nitrite NEG Ur Leukocyte Esterase NEG Urine RBC 0-2 Urine WBC 0 Ur Squamous Epith Cells NONE Amorphous Sediment 1+ Urine Bacteria NONE Imaging Radiologist's Impressions: Impressions Chest X-Ray 07/29/20 00:00 IMPRESSION: Catheter tip overlying the superior vena cava. No pneumothorax Chest X-Ray 07/29/20 15:53 IMPRESSION: Cardiomegaly without acute parenchymal disease. Chest CT 07/29/20 19:12 IMPRESSION: Bibasilar infiltrates/atelectasis. Findings could be due to aspiration or infiltrate. Cardiomegaly without CHF
[2020-07-30 00:50] LABS: Lactic Acid 1.8 mmol/L (0.5-2.0)
[2020-07-30 01:14] LABS: Ferritin 764 ng/mL (20-250)
[2020-07-30 01:22] LABS: C Reactive Protein 9.94 mg/dL (< or = 0.50); Magnesium 1.8 mg/dL (1.6-2.6); Phosphorus 3.2 mg/dL (2.7-4.5)
[2020-07-30] MEDS: 0.9 % Sodium Chloride 1,000 ML 100 ML IVCONT ×3 (02:05→21:22)
[2020-07-30 02:14] LABS: Procalcitonin 12.38 ng/mL
[2020-07-30] MEDS: Pantoprazole Sodium 40 MG/10 ML VIAL IVPUSH (05:22)
[2020-07-30] MEDS: Piperacillin Sodium/Tazobactam 3.375 GM in 0.9 % Sodium Chloride 50 ML IV ×4 (05:22→23:38)
[2020-07-30] MEDS: Albuterol/Iprat 2.5/0.5MG 3 ML AMPUL.NEB INHALE (05:48)
[2020-07-30 07:05] LABS: INTERNATIONAL NORM RATIO 2.4 (0.9-1.1); PLT CLUMP 1; Prothrombin Time 29.2 SEC (10.8-13.0)
[2020-07-30 07:06] LABS: Hematocrit 31.4 % (42-52); Hemoglobin 10.3 g/dl (14.0-18.0); Mean Corpuscular HGB Conc 32.8 g/dl (31.0-36.0); Mean Corpuscular Hemoglobin 33.2 pg (27.0-33.0); Mean Corpuscular Volume 101.3 fL (80-98); Mean Platelet Volume 11.3 fL (9.4-12.4); Platelet Count 118 X10*3/uL (160-400); Red Cell Distribution Width 13.1 % (11.0-16.0); White Blood Count 11.2 X10*3/uL (4.8-10.8)
[2020-07-30 07:08] LABS: D Dimer 409 NG/ML
--- NOTE | 2020-07-30 07:12 | ECG_ITS ---
Test Reason : EKG CHANGES Blood Pressure : / mmHG Vent. Rate : 056 BPM Atrial Rate : 136 BPM P-R Int : 000 ms QRS Dur : 086 ms QT Int : 566 ms P-R-T Axes : 000 053 030 degrees QTc Int : 546 ms Atrial fibrillation with slow ventricular response Prolonged QT Abnormal ECG When compared with ECG of 29-JUL-2020 16:11, Vent. rate has decreased BY 28 BPM Non-specific change in ST segment in Inferior leads Nonspecific T wave abnormality, improved in Inferior leads Referred By: Jeremy Vegas Electronically Signed By:SHELLIE SIMS MD
[2020-07-30 07:21] LABS: Influenza A PCR NEGATIVE (Negative); Influenza B PCR NEGATIVE (Negative); Resp Syncy Virus RNA Qual PCR NEGATIVE (Negative)
[2020-07-30 07:22] LABS: Procalcitonin 12.61 ng/mL
[2020-07-30 07:32] LABS: SARS COV2 PCR INHOUSE POSITIVE (Negative)
[2020-07-30 07:38] LABS: Anion Gap 12 (12-20); Blood Urea Nitrogen 26 mg/dL (9-16); C Reactive Protein 12.12 mg/dL (< or = 0.50); Calcium 7.7 mg/dL (8.4-10.2); Carbon Dioxide 21 mmol/L (22-29); Chloride 111 mmol/L (96-108); Creatinine Clr Calc Pharmacy 77.5; Estimated Glomerular Filt Rate > 60; Glucose Random 156 mg/dL (60-115); Magnesium 1.9 mg/dL (1.6-2.6); Sodium 140 mmol/L (135-145)
[2020-07-30 07:51] LABS: Band Neutrophils Percent 39 % (3-5); Lymphocytes Absolute Manual 0.2 X10*3/uL (0.6-4.8); Lymphocytes Percent Manual 2 % (20-40); Metamyelocytes Absolute 0.1 X10*3/uL; Metamyelocytes Percent 1 %; Monocytes Absolute Manual 0.3 X10*3/uL (0.0-1.2); Monocytes Percent Manual 3 % (2-11); Neutrophils Absolute Manual 10.5 X10*3/uL (2.2-7.9); Neutrophils Percent Manual 55 % (45-73)
[2020-07-30 07:52] LABS: Macrocytosis 1+; Platelet Estimate DECREASED (NORMAL); Platelet Morphology Comment NORMAL; RBC Morphology NOTED
[2020-07-30 07:53] LABS: Acanthocytes 1+; Burr Cells 1+; Ovalocytes 1+; Polychromasia 1+
[2020-07-30] MEDS: vancomycin HCL 1,000 MG in 0.9 % Sodium Chloride 250 ML 270 MG IV ×2 (09:05→21:19)
--- NOTE | 2020-07-30 12:49 | MHC.CM.PN ---
IMM 07/30/20 Male DX PNA was sent from [facility]. Information was obtained fro EMR and GF. 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 He went for STR @ [facility] 3 weeks ago. He lives w GF. She stated that he was talking and walking no AD. He went to [facility] because he wasnt doing much at home . It was felt that he was declining. DP return to [facility] vs Home with GF and homecare services. CM will follow.
--- NOTE | 2020-07-30 13:21 | P.PNCC_ITS ---
Subjective Subjective Date of Service: 07/30/20 Interval History: Mr. Silverio was admitted to ICU early this morning bec of hypotension thought 2? sepsis. The patient is a 74-year-old male with underlying history of Alzheimer's dementia who resides at a local jail, has underlying history of diverticulosis, vitamin-D deficiency, urinary incontinence, hypertension, hyperlipidemia, compression fractures of T11 and T12 vertebra raise, dysphagia, prosthetic heart valve and clot, cardiomyopathy, atrial fibrillation (but only on baby ASA, according to the Med Rec). At baseline he wears oxygen, 2L NC. Reportedly tested positive or COVID-19 on July 28. Reportedly the patient developed a fever at the facility yesterday and seemed more lethargic. Was sent to the ED yest afternoon. On arrival, was satting 95% on 4 L NC. Nontachypneic, no labored breathing. Temp up to 104?. Was consistently hypotensive in the ED, BP 70s-90s. Normal WBC, but lympopenic. BUN/creatinine were 35/1.3. DDimer 409. CXR was clear, CT showed bibasilar ? infiltrates, thought c/w aspiration; Chest CT was not typical of COVID. The patient was vol resusc, and started on vancomycin and Zosyn. BP did not come up after volume, so a central line was placed, the patient was started on Levophed, and admitted to the ICU where he was continued on empiric vancomycin and Zosyn for possible healthcare associated pneumonia. He was given bronchodilators and steroids for wheezing. Levophed came off this morning at 06:00 and he came off supplemental oxygen. Currently he is fully nontoxic, breathing easy, with fully normal work of breathing, sat is 89-93% on room air. He is fully responsive to commands, able to carry on a normal conversation, altho he?s not fully oriented. Asked me when he can go home. IMPRESSION: 1. Baseline dementia. Mental status seems back to baseline (altho I?m not sure what his baseline is). 2. COVID-19 positive PCR but without any clear coronavirus symptoms other than fever. 3. Small bibasilar infiltrates, not typical for Coronavirus disease. Possible aspiration. C/w h/o dysphagia. 4. Hypoxemic respiratory failure. Secondary to above. No wheezing now. I will d/c the steroids. 5. KLEBER. Secondary to hypovolemia +/- sepsis. 6. ID. I?m going to d/c the vanco, leave him on the Zosyn. If he continues afebrile without worsening of his respiratory or other sx, I would d/c his abx and send him back to the jail. Stable for transfer to the floor. I will sign out to the hospitalists. Time: [id number]. Physical Exam Vital Signs: Vital Signs: Last Vital Signs Temp 96.3 F L 07/30/20 13:00 Pulse 67 07/30/20 13:00 Resp 14 07/30/20 13:00 BP 124/80 07/30/20 13:00 Pulse Ox 94 07/30/20 13:00 Body Mass Index 22.6 Objective Data Labs CBC & Chem 7: 07/30/20 05:28 07/30/20 05:28 Labs: Laboratory Results - last 24 hr 07/29/20 07/29/20 07/29/20 16:10 16:11 16:11 WBC 6.3 RBC 3.56 L Hgb 11.6 L Hct 36.3 L MCV 102.0 H MCH 32.6 MCHC 32.0 RDW 13.0 Plt Count 144 L MPV 10.7 Immature Gran % (Auto) 0.3 Neut % (Auto) 83.4 H Lymph % (Auto) 8.3 L [place] % (Auto) 8.0 Eos % (Auto) 0.0 Baso % (Auto) 0.0 Lymph # (Auto) 0.5 L [place] # (Auto) 0.5 Eos # (Auto) 0.0 Baso # (Auto) 0.0 Abs Immat Gran (auto) 0.02 Absolute Neuts (auto) 5.2 Absolute Nucleated RBC 0.000 Nucleated RBC % (auto) 0.0 Neutrophils % (Manual) Band Neutrophils % Lymphocytes % (Manual) Monocytes % (Manual) Metamyelocytes % Abs Neuts (Manual) Lymphocytes # (Manual) Monocytes # (Manual) Metamyelocytes # Platelet Estimate Plt Morphology Comment RBC Morphology Polychromasia Macrocytosis Ovalocytes Mobile Cells Acanthocytes (Spur) Smear Tech's Comments VERIFIED PT 27.1 H INR 2.3 H APTT 37.4 D-Dimer Sodium 141 Potassium 4.1 Chloride 105 Carbon Dioxide 27 Anion Gap 13 BUN 35 H Creatinine 1.35 Estim Creat Clear Calc 51.6 Estimated GFR 52 Random Glucose 125 H Lactic Acid Lactic Acid Fup @ 2Hr Calcium 8.6 Phosphorus Magnesium Ferritin Total Bilirubin 1.1 H AST 53 H ALT 25 Alkaline Phosphatase 50 Troponin I High Sens C-Reactive Protein Total Protein 6.5 Albumin 3.9 Procalcitonin Urine Color Urine Appearance Urine pH Ur Specific [place] Urine Protein Urine Glucose (UA) Urine Ketones Urine Blood Urine Nitrite Ur Leukocyte Esterase Urine RBC Urine WBC Ur Squamous Epith Cells Amorphous Sediment Urine Bacteria Coronavirus (PCR) Influenza Type A (PCR) Influenza Type B (PCR) RSV RNA Qual (PCR) 07/29/20 07/29/20 07/29/20 16:11 16:11 19:00 WBC RBC Hgb Hct MCV MCH MCHC RDW Plt Count MPV Immature Gran % (Auto) Neut % (Auto) Lymph % (Auto) [place] % (Auto) Eos % (Auto) Baso % (Auto) Lymph # (Auto) [place] # (Auto) Eos # (Auto) Baso # (Auto) Abs Immat Gran (auto) Absolute Neuts (auto) Absolute Nucleated RBC Nucleated RBC % (auto) Neutrophils % (Manual) Band Neutrophils % Lymphocytes % (Manual) Monocytes % (Manual) Metamyelocytes % Abs Neuts (Manual) Lymphocytes # (Manual) Monocytes # (Manual) Metamyelocytes # Platelet Estimate Plt Morphology Comment RBC Morphology Polychromasia Macrocytosis Ovalocytes Mobile Cells Acanthocytes (Spur) Smear Tech's Comments PT INR APTT D-Dimer Sodium Potassium Chloride Carbon Dioxide Anion Gap BUN Creatinine Estim Creat Clear Calc Estimated GFR Random Glucose Lactic Acid 2.1 H* Lactic Acid Fup @ 2Hr 1.2 Calcium Phosphorus Magnesium Ferritin Total Bilirubin AST ALT Alkaline Phosphatase Troponin I High Sens 45.3 H C-Reactive Protein Total Protein Albumin Procalcitonin Urine Color Urine Appearance Urine pH Ur Specific [place] Urine Protein Urine Glucose (UA) Urine Ketones Urine Blood Urine Nitrite Ur Leukocyte Esterase Urine RBC Urine WBC Ur Squamous Epith Cells Amorphous Sediment Urine Bacteria Coronavirus (PCR) Influenza Type A (PCR) Influenza Type B (PCR) RSV RNA Qual (PCR) 07/29/20 07/29/20 07/30/20 19:38 19:38 00:19 WBC RBC Hgb Hct MCV MCH MCHC RDW Plt Count MPV Immature Gran % (Auto) Neut % (Auto) Lymph % (Auto) [place] % (Auto) Eos % (Auto) Baso % (Auto) Lymph # (Auto) [place] # (Auto) Eos # (Auto) Baso # (Auto) Abs Immat Gran (auto) Absolute Neuts (auto) Absolute Nucleated RBC Nucleated RBC % (auto) Neutrophils % (Manual) Band Neutrophils % Lymphocytes % (Manual) Monocytes % (Manual) Metamyelocytes % Abs Neuts (Manual) Lymphocytes # (Manual) Monocytes # (Manual) Metamyelocytes # Platelet Estimate Plt Morphology Comment RBC Morphology Polychromasia Macrocytosis Ovalocytes Mobile Cells Acanthocytes (Spur) Smear Tech's Comments PT INR APTT D-Dimer Sodium Potassium Chloride Carbon Dioxide Anion Gap BUN Creatinine Estim Creat Clear Calc Estimated GFR Random Glucose Lactic Acid Lactic Acid Fup @ 2Hr Calcium Phosphorus 3.2 Magnesium 1.8 Ferritin 764 H Total Bilirubin AST ALT Alkaline Phosphatase Troponin I High Sens 45.7 H C-Reactive Protein 9.94 H Total Protein Albumin Procalcitonin Urine Color YELLOW Urine Appearance CLEAR Urine pH 5.5 Ur Specific [place] >= 1.030 H Urine Protein TRACE Urine Glucose (UA) NEG Urine Ketones NEG Urine Blood NEG Urine Nitrite NEG Ur Leukocyte Esterase NEG Urine RBC 0-2 Urine WBC 0 Ur Squamous Epith Cells NONE Amorphous Sediment 1+ Urine Bacteria NONE Coronavirus (PCR) Influenza Type A (PCR) Influenza Type B (PCR) RSV RNA Qual (PCR) 07/30/20 07/30/20 07/30/20 00:19 00:19 05:28 WBC 11.2 H RBC 3.10 L Hgb 10.3 L Hct 31.4 L MCV 101.3 H MCH 33.2 H MCHC 32.8 RDW 13.1 Plt Count 118 L MPV 11.3 Immature Gran % (Auto) Cancelled Neut % (Auto) Cancelled Lymph % (Auto) Cancelled [place] % (Auto) Cancelled Eos % (Auto) Cancelled Baso % (Auto) Cancelled Lymph # (Auto) Cancelled [place] # (Auto) Cancelled Eos # (Auto) Cancelled Baso # (Auto) Cancelled Abs Immat Gran (auto) Cancelled Absolute Neuts (auto) Cancelled Absolute Nucleated RBC 0.000 Nucleated RBC % (auto) 0.0 Neutrophils % (Manual) 55 Band Neutrophils % 39 H Lymphocytes % (Manual) 2 L Monocytes % (Manual) 3 Metamyelocytes % 1 Abs Neuts (Manual) 10.5 H Lymphocytes # (Manual) 0.2 L Monocytes # (Manual) 0.3 Metamyelocytes # 0.1 Platelet Estimate DECREASED Plt Morphology Comment NORMAL RBC Morphology NOTED Polychromasia 1+ Macrocytosis 1+ Ovalocytes 1+ Rober Cells 1+ Acanthocytes (Spur) 1+ Smear Tech's Comments PT INR APTT D-Dimer Sodium Potassium Chloride Carbon Dioxide Anion Gap BUN Creatinine Estim Creat Clear Calc Estimated GFR Random Glucose Lactic Acid 1.8 Lactic Acid Fup @ 2Hr Calcium Phosphorus Magnesium Ferritin Total Bilirubin AST ALT Alkaline Phosphatase Troponin I High Sens C-Reactive Protein Total Protein Albumin Procalcitonin 12.38 Urine Color Urine Appearance Urine pH Ur Specific [place] Urine Protein Urine Glucose (UA) Urine Ketones Urine Blood Urine Nitrite Ur Leukocyte Esterase Urine RBC Urine WBC Ur Squamous Epith Cells Amorphous Sediment Urine Bacteria Coronavirus (PCR) Influenza Type A (PCR) Influenza Type B (PCR) RSV RNA Qual (PCR) 07/30/20 07/30/20 07/30/20 05:28 05:28 05:28 WBC RBC Hgb Hct MCV MCH MCHC RDW Plt Count MPV Immature Gran % (Auto) Neut % (Auto) Lymph % (Auto) [place] % (Auto) Eos % (Auto) Baso % (Auto) Lymph # (Auto) [place] # (Auto) Eos # (Auto) Baso # (Auto) Abs Immat Gran (auto) Absolute Neuts (auto) Absolute Nucleated RBC Nucleated RBC % (auto) Neutrophils % (Manual) Band Neutrophils % Lymphocytes % (Manual) Monocytes % (Manual) Metamyelocytes % Abs Neuts (Manual) Lymphocytes # (Manual) Monocytes # (Manual) Metamyelocytes # Platelet Estimate Plt Morphology Comment RBC Morphology Polychromasia Macrocytosis Ovalocytes Rober Cells Acanthocytes (Spur) Smear Tech's Comments PT 29.2 H INR 2.4 H APTT D-Dimer 409 Sodium 140 Potassium 4.0 Chloride 111 H Carbon Dioxide 21 L Anion Gap 12 BUN 26 H Creatinine 0.90 Estim Creat Clear Calc 77.5 Estimated GFR > 60 Random Glucose 156 H Lactic Acid Lactic Acid Fup @ 2Hr Calcium 7.7 L D Phosphorus Magnesium 1.9 Ferritin Total Bilirubin AST ALT Alkaline Phosphatase Troponin I High Sens C-Reactive Protein 12.12 H Total Protein Albumin Procalcitonin 12.61 Urine Color Urine Appearance Urine pH Ur Specific [place] Urine Protein Urine Glucose (UA) Urine Ketones Urine Blood Urine Nitrite Ur Leukocyte Esterase Urine RBC Urine WBC Ur Squamous Epith Cells Amorphous Sediment Urine Bacteria Coronavirus (PCR) Influenza Type A (PCR) Influenza Type B (PCR) RSV RNA Qual (PCR) 07/30/20 05:28 WBC RBC Hgb Hct MCV MCH MCHC RDW Plt Count MPV Immature Gran % (Auto) Neut % (Auto) Lymph % (Auto) [place] % (Auto) Eos % (Auto) Baso % (Auto) Lymph # (Auto) [place] # (Auto) Eos # (Auto) Baso # (Auto) Abs Immat Gran (auto) Absolute Neuts (auto) Absolute Nucleated RBC Nucleated RBC % (auto) Neutrophils % (Manual) Band Neutrophils % Lymphocytes % (Manual) Monocytes % (Manual) Metamyelocytes % Abs Neuts (Manual) Lymphocytes # (Manual) Monocytes # (Manual) Metamyelocytes # Platelet Estimate Plt Morphology Comment RBC Morphology Polychromasia Macrocytosis Ovalocytes Rober Cells Acanthocytes (Spur) Smear Tech's Comments PT INR APTT D-Dimer Sodium Potassium Chloride Carbon Dioxide Anion Gap BUN Creatinine Estim Creat Clear Calc Estimated GFR Random Glucose Lactic Acid Lactic Acid Fup @ 2Hr Calcium Phosphorus Magnesium Ferritin Total Bilirubin AST ALT Alkaline Phosphatase Troponin I High Sens C-Reactive Protein Total Protein Albumin Procalcitonin Urine Color Urine Appearance Urine pH Ur Specific [place] Urine Protein Urine Glucose (UA) Urine Ketones Urine Blood Urine Nitrite Ur Leukocyte Esterase Urine RBC Urine WBC Ur Squamous Epith Cells Amorphous Sediment Urine Bacteria Coronavirus (PCR) POSITIVE A Influenza Type A (PCR) NEGATIVE Influenza Type B (PCR) NEGATIVE RSV RNA Qual (PCR) NEGATIVE Progress Note: A&P Time Spent With Patient Time: Total time spent is greater than 50% in coordination of care (as documented) at patient's floor/unit and/or counseling patient: Total time spent with greater than 50% in coordination of care (as documented) at patient's floor/unit and/or counseling patient:: 0
--- NOTE | 2020-07-30 18:44 | PC.NURSE ---
PT ALERT TO SELF ONLY THROUGHOUT SHIFT, AFTERNOON ASSESSMENT STATED HE WAS AT THE HOSPITAL . VSS. LEVOPHED GTT REMAINED OFF ALL SHIFT. LS DIMINISHED THROUGHOUT. AT CHANGE OF SHIFT JOY NOTED TO HAVE BLOOD TINGED URINE, PT FOUND TO BE PULLING ON JOY. EDUCATED ON JOY. KNODS UNDERSTANDING. PT SLEPT THROUGHOUT MOST OF SHIFT, BUT ABLE TO BE WOKEN UP BY CALLING HIS NAME. Q2H REPO, CREAM APPLIED, BATHED. PTS GF UPDATED AND WOULD LIKE TO BE CALLED WITH ANY CHANGES, WILL PASS ON TO ONCOMING RN.
[2020-07-31] VITALS (7 sets, daily range): BP systolic 134–149; BP diastolic 60–85; PULSE 64–108; RESP 18–22; TEMP 36.5–37.4; O2SAT 93–96
--- NOTE | 2020-07-31 01:55 | PC.NURSE ---
PATIENT INCREASINGLY ALERT, ORIENTED TO SELF ONLY. GIRLFRIEND UPDATED VIA PHONE/SPOKE WITH PATIENT. REMAINS OFF LEVO. REDNESS TO BUTTOCKS WORSENING, REMAINS BLANCHABLE. DILIGANT Q2H REPO/AIRLOSS BED/BARRIER CREAM. REPORT TO [facility]. TRANSFER PENDING.
[2020-07-31] MEDS: Albuterol/Iprat 2.5/0.5MG 3 ML AMPUL.NEB INHALE (06:38)
[2020-07-31 06:46] LABS: Base Excess VBG -3.7 mmol/L; Blood Gas Serial # 5414; HCO3 VBG 22 mmol/L; Oxygen Saturation VBG 19.3 %; PCO2 VBG 40 mmhg; PO2 VBG 16 mmhg; pH VBG 7.35 (7.32-7.43)
[2020-07-31] MEDS: Pantoprazole Sodium 40 MG/10 ML VIAL IVPUSH (06:54)
[2020-07-31] MEDS: Piperacillin Sodium/Tazobactam 3.375 GM in 0.9 % Sodium Chloride 50 ML IV ×3 (06:55→18:12)
[2020-07-31] MEDS: 0.9 % Sodium Chloride 1,000 ML 100 ML IVCONT (09:46)
[2020-07-31 11:28] LABS: Hematocrit 32.2 % (42-52); Hemoglobin 10.5 g/dl (14.0-18.0); Mean Corpuscular HGB Conc 32.6 g/dl (31.0-36.0); Mean Corpuscular Hemoglobin 33.1 pg (27.0-33.0); Mean Corpuscular Volume 101.6 fL (80-98); Mean Platelet Volume 12.2 fL (9.4-12.4); Platelet Count 124 X10*3/uL (160-400); Red Blood Count 3.17 X10*6/uL (4.60-5.80); Red Cell Distribution Width 13.1 % (11.0-16.0); White Blood Count 12.1 X10*3/uL (4.8-10.8)
[2020-07-31 11:36] LABS: Anion Gap 13 (12-20); Blood Urea Nitrogen 25 mg/dL (9-16); Calcium 7.9 mg/dL (8.4-10.2); Carbon Dioxide 22 mmol/L (22-29); Chloride 113 mmol/L (96-108); Creatinine Clr Calc Pharmacy 87.2; Estimated Glomerular Filt Rate > 60; Glucose Random 107 mg/dL (60-115); Potassium 3.6 mmol/l (3.3-5.1); Sodium 144 mmol/L (135-145)
[2020-07-31 12:03] LABS: Procalcitonin 10.12 ng/mL
--- NOTE | 2020-07-31 12:40 | HO.PM.IMPN ---
Subjective Subjective Date of Service: 07/31/20 Interval History: seen and examined this AM denies any complaints asking for food and water ROS denies sob or cough denies chest pain Physical Exam Vital Signs: Vital Signs: Last Vital Signs Temp 98.3 F 07/31/20 11:44 Pulse 76 07/31/20 11:44 Resp 20 07/31/20 11:44 BP 147/85 H 07/31/20 11:44 Pulse Ox 96 07/31/20 11:44 Body Mass Index 22.6 Const: Other: General - no acute distress, appears comfortable Cardiovascular - regular rate and rhythm, S1-S2 Lungs - diminished Abdomen - soft, nontender, no rebound or guarding Extremities - no edema bilaterally Neuro - awake and alert, no focal deficits Objective Data Current Medications Generic Name Dose Route Start Last Admin Trade Name Freq PRN Reason Stop Dose Admin Albuterol/Ipratropium 3 ml 07/30/20 00:15 07/31/20 10:59 Albuterol/Iprat 2.5/0.5mg 3 Ml Ampul.Neb INHALE Not Given Q6H LUZ MARINA Benzonatate 100 mg 07/31/20 03:14 Benzonatate 100 Mg Capsule PO Q6H PRN Cough Piperacillin Sod/Tazobactam 50 mls @ 100 mls/hr 07/30/20 06:00 07/31/20 07:25 Sod 3.375 gm/ Sodium Chloride IV Infused Q6H LUZ MARINA Infusion Labs CBC & Chem 7: 07/31/20 06:10 07/31/20 06:10 Microbiology Microbiology Results: Microbiology 07/29/20 16:48 Blood - Venous Blood Culture - Preliminary No growth after 24 hours. 07/29/20 16:14 Blood - Venous Blood Culture - Preliminary No growth after 24 hours. Assessment and Plan (1) Sepsis: Status: Acute Assessment and Plan: This is a 74 yo M from [facility] who was admitted to the ICU for sepsis related aspiration/hcap requiring broad spectrum antibiotics and vasopressors. He was titrated off pressors, vancomcyin discontinued and trasnferred out of the intensive care unit. 1. Pneumonia, aspiration vs hcap leading to hypoxic respiratory failure + sepsis with hypotension COVID respiratory failure and sepsis resolved. off pressors and now bp rebounding continue zosyn, f/u cultures -- negative to date add doxycycline and check nasal MRSA trend cbc, procalcitonin downtrending, but still elevated 2. Dementia with dysphagia pureed + nectar thick 3. History of A. Fib on metorpolol (per med list on chart), will restart low dose at 12.5mg bid on asa 81 -- dont see OAC on the list from SNF 4. HLD lipitor Full Code DVT pptx, lovenox
[2020-07-31] MEDS: Doxycycline Hyclate 100 MG in 0.9 % Sodium Chloride 250 ML 166.67 MG IV (14:51)
--- NOTE | 2020-07-31 17:55 | PC.NURSE ---
spoke with pt's significant other over the phone and updated her on pt's condition and plan of care. she states that pt was at rehab facility and due to go home next week. she verbalized that she would like to take the pt home upon discharge. explained to her that this information would be passed to oncoming nurse and case managment for further follow up.
[2020-07-31] MEDS: Enoxaparin Sodium 40 MG/0.4 ML SYRINGE SUBCUT (18:11)
[2020-07-31] MEDS: Atorvastatin Calcium 80 MG TABLET PO (20:22)
[2020-07-31] MEDS: Metoprolol Tartrate 12.5 MG HALFTAB PO (20:22)
[2020-08-01] VITALS (7 sets, daily range): BP systolic 94–163; BP diastolic 56–81; PULSE 66–99; RESP 17–20; TEMP 36.6–37.9; O2SAT 90–97
[2020-08-01] MEDS: Doxycycline Hyclate 100 MG in 0.9 % Sodium Chloride 250 ML 166.67 MG IV ×2 (00:10→12:30)
[2020-08-01] MEDS: Piperacillin Sodium/Tazobactam 3.375 GM in 0.9 % Sodium Chloride 50 ML IV ×4 (00:10→18:30)
[2020-08-01] MEDS: Aspirin 81 MG TAB.CHEW PO (08:03)
[2020-08-01] MEDS: Metoprolol Tartrate 12.5 MG HALFTAB PO ×2 (08:03→21:07)
[2020-08-01] MEDS: Escitalopram Oxalate 20 MG TABLET PO (08:04)
[2020-08-01 09:38] LABS: Hematocrit 30.8 % (42-52); Hemoglobin 10.4 g/dl (14.0-18.0); Mean Corpuscular HGB Conc 33.8 g/dl (31.0-36.0); Mean Corpuscular Hemoglobin 32.8 pg (27.0-33.0); Mean Corpuscular Volume 97.2 fL (80-98); Mean Platelet Volume 10.8 fL (9.4-12.4); Platelet Count 144 X10*3/uL (160-400); Red Blood Count 3.17 X10*6/uL (4.60-5.80); Red Cell Distribution Width 12.8 % (11.0-16.0); White Blood Count 8.5 X10*3/uL (4.8-10.8)
[2020-08-01 09:53] LABS: INTERNATIONAL NORM RATIO 3.8 (0.9-1.1); Prothrombin Time 45.2 SEC (10.8-13.0)
[2020-08-01 10:31] LABS: Alanine Aminotransferase 22 U/L (0-40); Albumin Level 3.2 g/dL (3.5-5.0); Alkaline Phosphatase 36 U/L (39-117); Anion Gap 13 (12-20); Aspartate Amino Transferase 40 U/L (5-37); Bilirubin Total 1.6 mg/dL (0.0-1.0); Blood Urea Nitrogen 19 mg/dL (9-16); Calcium 8.1 mg/dL (8.4-10.2); Carbon Dioxide 22 mmol/L (22-29); Chloride 106 mmol/L (96-108); Creatinine Clr Calc Pharmacy 87.2; Estimated Glomerular Filt Rate > 60; Glucose Random 112 mg/dL (60-115); Potassium 3.4 mmol/l (3.3-5.1); Sodium 138 mmol/L (135-145); Total Protein 5.6 g/dL (6.5-8.0)
[2020-08-01 10:56] LABS: SLIDE REVIEW MANUAL DIFF
[2020-08-01 10:58] LABS: Lymphocytes Absolute Manual 0.4 X10*3/uL (0.6-4.8); Lymphocytes Percent Manual 5 % (20-40); Monocytes Absolute Manual 0.3 X10*3/uL (0.0-1.2); Monocytes Percent Manual 3 % (2-11); Neutrophils Percent Manual 92 % (45-73); Nucleated Red Blood Cells 2 /100WBC (0-0)
[2020-08-01 10:59] LABS: Band Neutrophils Percent 0 % (3-5); Neutrophils Absolute Manual 7.8 X10*3/uL (2.2-7.9); Ovalocytes 1+; Platelet Estimate NORMAL (NORMAL); Platelet Morphology Comment NORMAL; RBC Morphology NOTED
--- NOTE | 2020-08-01 12:05 | P.CDIC_ITS ---
CDI Concurrent Query Service Date: 08/01/20 Documentation Clarification: Please clarify if you are treating a proba ble/suspected/likely or confirmed: Acute on Chronic Hypoxic Respiratory Failure Other, please specify if known Provider Response: Acute Respiratory Failure PLEASE DO NOT DELETE/MODIFY EXISTING CONTENT Additional information is needed in order to code to the highest accuracy and appropriate Severity of Illness (SOI). Please clarify the information noted below in your progress notes and discharge summary. Risk Factors/Clinical Indicators/Treatments 74 year old male admitted with fever, COVID + at SNF. On oxygen at 2L at baseline. Treated with oxygen at 4L with SAT 95%, bronchodilator, steroid Chest CT: bibasilar infiltrates/atelectasis, could be due to aspiration or infiltrate Per MD notes: Hypoxemic Respiratory Failure CDS: Irma Puga RN Contact Number: [phone] Please Review the information above and exercise your independent professional judgment in responding to the query. If you concur, pleas document in the PROGRESS NOTES and DISCHARGE SUMMARY. If you do not agree with the query, please document in the query above. THIS QUERY IS PART OF THE PERMANENT MEDICAL RECORD
--- NOTE | 2020-08-01 12:28 | HO.PM.IMPN ---
Subjective Subjective Date of Service: 08/01/20 Interval History: no complaints now Cardiovascular Cardiovascular: Reports no additional cardiovascular complaints Respiratory Respiratory: Reports no additional respiratory complaints Physical Exam Vital Signs: Vital Signs: Last Vital Signs Temp 97.8 F 08/01/20 08:00 Pulse 99 08/01/20 08:00 Resp 18 08/01/20 08:00 BP 142/78 H 08/01/20 08:00 Pulse Ox 92 08/01/20 08:00 Body Mass Index 22.6 General: Alert, confused, no acute distress Resp: CTA bilateral CVS: S1,S2,RRR GI: soft, non tender, non distended Neuro: motor grossly intact Psych: appropriate affect Objective Data Current Medications Generic Name Dose Route Start Last Admin Trade Name Freq PRN Reason Stop Dose Admin Albuterol/Ipratropium 3 ml 07/30/20 00:15 08/01/20 06:59 Albuterol/Iprat 2.5/0.5mg 3 Ml Ampul.Neb INHALE Not Given Q6H [facility] Aspirin 81 mg 08/01/20 09:00 08/01/20 08:03 Aspirin 81 Mg Tab.Chew PO 81 mg DAILY LUZ MARINA Administration Atorvastatin Calcium 80 mg 07/31/20 21:00 07/31/20 20:22 Atorvastatin Calcium 80 Mg Tablet PO 80 mg BEDTIME LUZ MARINA Administration Benzonatate 100 mg 07/31/20 03:14 Benzonatate 100 Mg Capsule PO Q6H PRN Cough Escitalopram Oxalate 20 mg 08/01/20 09:00 08/01/20 08:04 Escitalopram Oxalate 20 Mg Tablet PO 20 mg DAILY LUZ MARINA Administration Piperacillin Sod/Tazobactam 50 mls @ 100 mls/hr 07/30/20 06:00 08/01/20 12:13 Sod 3.375 gm/ Sodium Chloride IV 100 mls/hr Q6H LUZ MARINA Administration Doxycycline Hyclate 100 mg/ 250 mls @ 166.67 mls/hr 07/31/20 13:00 08/01/20 01:49 Sodium Chloride IV Infused Q12H LUZ MARINA Infusion Metoprolol Tartrate 12.5 mg 07/31/20 21:00 08/01/20 08:03 Metoprolol Tartrate 12.5 Mg Halftab PO 12.5 mg BID LUZ MARINA Administration Protocol Warfarin Sodium 4 mg 08/01/20 18:00 Warfarin Sodium 4 Mg Tablet PO DAILY@1800 [facility] Labs CBC & Chem 7: 08/01/20 09:28 08/01/20 09:28 Microbiology Microbiology Results: Microbiology 07/29/20 16:48 Blood - Venous Blood Culture - Preliminary No growth after 48 hours. 07/29/20 16:14 Blood - Venous Blood Culture - Preliminary No growth after 48 hours. Assessment and Plan (1) Sepsis: Status: Acute Assessment and Plan: This is a 74 yo M from SNF (previosly at home with significant other) who was admitted to the ICU for septic shock related aspiration/hcap requiring broad spectrum antibiotics and vasopressors. He was titrated off pressors, vancomcyin discontinued and trasnferred out of the intensive care unit. 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
[2020-08-01] MEDS: Acetaminophen 325 MG TABLET 650 MG PO (13:46)
--- NOTE | 2020-08-01 16:27 | MHC.CM.PN ---
CM CONTACTED PTS S/O OANH ([phone]) TO DISCUSS PTS DC PLAN. SHE REPORTS SHE WOULD LIKE THE PT HOME EVENTUALLY BUT SHE WOULD NOT BE ABLE TO HAVE HIM HOME IF HE IS COVID + BECAUSE SHE WOULD HAVE TO BE CARING FOR HIM. SHE REPORTS [facility] WAS GOOD BUT SHE KNOWS THEY WILL NOT TAKE PT IF HE IS COVID +. SHE IS AWARE THAT [facility] IS TAKING COVID+ BUT HAVE BEEN FULL. SHE REPORTS SHE [place] IN [place] AND WOULD CONSIDER TRYING TO FIND A SNF CLOSER TO HER. SHE IS AWARE CM WILL CONTACT HER AGAIN TO DISCUSS DISPO WHEN DC DATE IS KNOWN
--- NOTE | 2020-08-01 19:39 | PC.NURSE ---
attempted to call Tamela talbot's S.O with updates ,no answer
[2020-08-01] MEDS: Atorvastatin Calcium 80 MG TABLET PO (21:07)
[2020-08-02] VITALS (12 sets, daily range): BP systolic 110–129; BP diastolic 62–76; PULSE 80–98; RESP 18–20; TEMP 36.8–38; O2SAT 84–96; BMI 23.6
--- NOTE | 2020-08-02 | XR_ITS ---
EXAMINATION: XR CHEST CLINICAL INFORMATION: Worsening hypoxia COMPARISON: Previous chest x-ray 07/29/2020 TECHNIQUE: Frontal view of the chest was obtained. FINDINGS: The cardiac silhouette is enlarged but stable. There are median sternotomy wires. There is a right jugular line with tip projecting over the SVC. Mediastinal contours are unremarkable. There are increased hilar markings and bilateral predominantly central and lower lobe airspace disease. Differential would include pulmonary edema and pneumonia. There is no pleural effusion or pneumothorax. There are degenerative changes of the spine. XR/XR chest 1V IMPRESSION: Stable enlargement of the cardiac silhouette. Increased hilar markings and perihilar and lower lobe airspace disease. Differential would include pulmonary edema and pneumonia.
[2020-08-02] MEDS: Piperacillin Sodium/Tazobactam 3.375 GM in 0.9 % Sodium Chloride 50 ML IV ×4 (00:23→17:32)
[2020-08-02] MEDS: Acetaminophen 325 MG TABLET 650 MG PO (00:25)
[2020-08-02] MEDS: Doxycycline Hyclate 100 MG in 0.9 % Sodium Chloride 250 ML 166.67 MG IV ×2 (01:05→12:20)
[2020-08-02 06:49] LABS: Imm Gran Abs Auto 0.03 X10*3/uL (0.00-0.03); MANUAL DIFF FLAG SCAN; Mean Corpuscular HGB Conc 33.1 g/dl (31.0-36.0); Mean Platelet Volume 11.6 fL (9.4-12.4); PLT CLUMP 1; SCAN SMEAR FLAG 1
[2020-08-02 06:51] LABS: Hematocrit 32.6 % (42-52); Hemoglobin 10.8 g/dl (14.0-18.0); Imm Gran Pct Auto 0.6 % (0.0-0.4); Lymphocytes Absolute Auto 0.4 X10*3/uL (1.2-4.9); Lymphocytes Percent Auto 7.8 % (20-40); Mean Corpuscular Hemoglobin 32.5 pg (27.0-33.0); Mean Corpuscular Volume 98.2 fL (80-98); Monocytes Absolute Auto 0.2 X10*3/uL (0.1-1.2); Monocytes Percent Auto 3.3 % (2-11); Neutrophils Absolute Auto 4.5 X10*3/uL (2.0-8.3); Neutrophils Percent Auto 88.3 % (45-73); Platelet Count 133 X10*3/uL (160-400); Red Blood Count 3.32 X10*6/uL (4.60-5.80); Red Cell Distribution Width 12.7 % (11.0-16.0); White Blood Count 5.1 X10*3/uL (4.8-10.8)
[2020-08-02 07:01] LABS: INTERNATIONAL NORM RATIO 3.7 (0.9-1.1); Prothrombin Time 44.9 SEC (10.8-13.0)
[2020-08-02 07:16] LABS: Alanine Aminotransferase 24 U/L (0-40); Albumin Level 3.2 g/dL (3.5-5.0); Alkaline Phosphatase 37 U/L (39-117); Anion Gap 12 (12-20); Aspartate Amino Transferase 40 U/L (5-37); Bilirubin Direct 0.7 mg/dL (0.0-0.5); Bilirubin Total 1.7 mg/dL (0.0-1.0); Blood Urea Nitrogen 18 mg/dL (9-16); Carbon Dioxide 26 mmol/L (22-29); Chloride 103 mmol/L (96-108); Creatinine Clr Calc Pharmacy 88.2; Estimated Glomerular Filt Rate > 60; Glucose Fasting 80 mg/dL (60-99); Potassium 3.6 mmol/l (3.3-5.1); Sodium 137 mmol/L (135-145); Total Protein 5.3 g/dL (6.5-8.0)
[2020-08-02] MEDS: Escitalopram Oxalate 20 MG TABLET PO (09:28)
[2020-08-02] MEDS: Metoprolol Tartrate 12.5 MG HALFTAB PO ×2 (09:28→20:42)
[2020-08-02] MEDS: Aspirin 81 MG TAB.CHEW PO (09:28)
[2020-08-02 09:35] LABS: SLIDE REVIEW VERIFIED
--- NOTE | 2020-08-02 12:04 | P.PNIM_ITS ---
Subjective Subjective Date of Service: 08/02/20 Interval History: was more short of breath this morning, now back to normal Cardiovascular Cardiovascular: Reports no additional cardiovascular complaints Gastrointestinal Gastrointestinal: Reports no additional gastrointestinal complaints Physical Exam Vital Signs: Vital Signs: Last Vital Signs Temp 98.7 F 08/02/20 08:00 Pulse 96 08/02/20 09:28 Resp 20 08/02/20 08:00 BP 117/76 08/02/20 08:00 Pulse Ox 96 08/02/20 09:56 Body Mass Index 23.6 General: Alert, confused, no acute distress Resp: crackles CVS: S1,S2,RRR GI: soft, non tender, non distended Neuro: motor grossly intact Psych: appropriate affect Objective Data Current Medications Generic Name Dose Route Start Last Admin Trade Name Freq PRN Reason Stop Dose Admin Acetaminophen 650 mg 08/01/20 12:51 08/02/20 00:25 Acetaminophen 325 Mg Tablet PO 650 mg Q6H PRN Administration pain, fever Albuterol Sulfate 1 puff 08/01/20 12:59 Albuterol Sulfate 90 Mcg 8 Gm Inhaler INHALE RQ4H PRN shortness of breath Aspirin 81 mg 08/01/20 09:00 08/02/20 09:28 Aspirin 81 Mg Tab.Chew PO 81 mg DAILY LUZ [facility]INA Administration Atorvastatin Calcium 80 mg 07/31/20 21:00 08/01/20 21:07 Atorvastatin Calcium 80 Mg Tablet PO 80 mg BEDTIME LU[facility] MARINA Administration Benzonatate 100 mg 07/31/20 03:14 Benzonatate 100 Mg Capsule PO Q6H PRN Cough Dexamethasone Sodium Phosphate 6 mg 08/03/20 09:00 Dexamethasone Sod Phosphate/Pf 10 Mg/Ml Vial IVPUSH DAILY LUZ MARINA Escitalopram Oxalate 20 mg 08/01/20 09:00 08/02/20 09:28 Escitalopram Oxalate 20 Mg Tablet PO 20 mg DAILY [facility]INA Administration Piperacillin Sod/Tazobactam 50 mls @ 100 mls/hr 07/30/20 06:00 08/02/20 11:38 Sod 3.375 gm/ Sodium Chloride IV 100 mls/hr Q6H [facility] Administration Doxycycline Hyclate 100 mg/ 250 mls @ 166.67 mls/hr 07/31/20 13:00 08/02/20 02:48 Sodium Chloride IV Infused Q12H [facility] Infusion Metoprolol Tartrate 12.5 mg 07/31/20 21:00 08/02/20 09:28 Metoprolol Tartrate 12.5 Mg Halftab PO 12.5 mg BID COUNTS INCLUDE 234 BEDS AT THE [facility] Administration Protocol Warfarin Sodium 4 mg 08/01/20 18:00 08/01/20 19:32 Warfarin Sodium 4 Mg Tablet PO Not Given DAILY@1800 COUNTS INCLUDE 234 BEDS AT THE [facility] Labs CBC & Chem 7: 08/02/20 05:54 08/02/20 05:54 Microbiology Microbiology Results: Microbiology 07/29/20 16:48 Blood - Venous Blood Culture - Preliminary No growth after 48 hours. 07/29/20 16:14 Blood - Venous Blood Culture - Preliminary No growth after 48 hours. Assessment and Plan (1) Sepsis: Status: Acute Assessment and Plan: This is a 74 yo M from SNF (previosly at home with significant other) who was admitted to the ICU for septic shock related aspiration/hcap requiring broad spectrum antibiotics and vasopressors. He was titrated off pressors, vancomcyin discontinued and trasnferred out of the intensive care unit. 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
[2020-08-02] MEDS: Atorvastatin Calcium 80 MG TABLET PO (20:42)
--- NOTE | 2020-08-02 22:08 | PC.NURSE ---
pt had kaufman in place from when pt was in ICU- no active order at this time, RN checked facility paperwork - pt is incontinent at baseline but no chronic Kaufman. No kaufman cath need indicated at this time as no criteria currently met. Removed at 17:30 - put external condom cath on pt. Pt hasnt voided at this time still has a few hours to void per policy- will update oncoming RN with this info.
[2020-08-03] VITALS (7 sets, daily range): BP systolic 91–135; BP diastolic 49–78; PULSE 57–99; RESP 16–20; TEMP 36.2–37.9; O2SAT 92–100; BMI 23.1
[2020-08-03] MEDS: Piperacillin Sodium/Tazobactam 3.375 GM in 0.9 % Sodium Chloride 50 ML IV ×5 (00:41→23:36)
[2020-08-03] MEDS: Doxycycline Hyclate 100 MG in 0.9 % Sodium Chloride 250 ML 166.67 MG IV ×3 (00:51→23:36)
--- NOTE | 2020-08-03 04:18 | PC.NURSE ---
Patient O2 sats decreased to high 70's/80's on 2-3L of O2 via NC. This RN at bedside to assess, Pt sleeping. O2 on NC increased slowly up to 6L with little change in O2 sats. Respritory called, venti mask on at 50%/12L and Pt O2 sats 95%. Will continue to monitor.
[2020-08-03 07:26] LABS: Hematocrit 32.9 % (42-52); MANUAL DIFF FLAG SCAN; Mean Corpuscular Volume 99.4 fL (80-98); PLT CLUMP 1; Red Blood Count 3.31 X10*6/uL (4.60-5.80); SCAN SMEAR FLAG 1
[2020-08-03 07:27] LABS: INTERNATIONAL NORM RATIO 1.9 (0.9-1.1); Prothrombin Time 22.3 SEC (10.8-13.0)
[2020-08-03 07:28] LABS: Hemoglobin 10.6 g/dl (14.0-18.0); Imm Gran Abs Auto 0.03 X10*3/uL (0.00-0.03); Imm Gran Pct Auto 0.6 % (0.0-0.4); Lymphocytes Absolute Auto 0.5 X10*3/uL (1.2-4.9); Lymphocytes Percent Auto 9.8 % (20-40); Mean Corpuscular HGB Conc 32.2 g/dl (31.0-36.0); Mean Platelet Volume 10.8 fL (9.4-12.4); Monocytes Absolute Auto 0.3 X10*3/uL (0.1-1.2); Monocytes Percent Auto 6.6 % (2-11); Neutrophils Absolute Auto 4.1 X10*3/uL (2.0-8.3); Platelet Count 138 X10*3/uL (160-400); Red Cell Distribution Width 12.9 % (11.0-16.0)
[2020-08-03 08:05] LABS: Anion Gap 13 (12-20); Blood Urea Nitrogen 22 mg/dL (9-16); Calcium 7.5 mg/dL (8.4-10.2); Carbon Dioxide 24 mmol/L (22-29); Chloride 104 mmol/L (96-108); Creatinine Clr Calc Pharmacy 91.1; Estimated Glomerular Filt Rate > 60; Glucose Fasting 73 mg/dL (60-99); Potassium 3.7 mmol/l (3.3-5.1); Sodium 137 mmol/L (135-145)
[2020-08-03 08:59] LABS: SLIDE REVIEW VERIFIED
[2020-08-03] MEDS: Escitalopram Oxalate 20 MG TABLET PO (11:09)
[2020-08-03] MEDS: Metoprolol Tartrate 12.5 MG HALFTAB PO (11:09)
[2020-08-03] MEDS: Aspirin 81 MG TAB.CHEW PO (11:09)
--- NOTE | 2020-08-03 12:11 | HO.PM.IMPN ---
Subjective Subjective Date of Service: 08/03/20 Interval History: sob Cardiovascular Cardiovascular: Reports no additional cardiovascular complaints Gastrointestinal Gastrointestinal: Reports no additional gastrointestinal complaints Physical Exam Vital Signs: Vital Signs: Last Vital Signs Temp 97.7 F 08/03/20 11:12 Pulse 99 08/03/20 11:12 Resp 17 08/03/20 11:12 BP 119/78 08/03/20 11:12 Pulse Ox 91 L 08/03/20 11:12 Body Mass Index 23.1 General: confused but more alert, no acute distress Resp: CTA bilateral CVS: S1,S2,RRR GI: soft, non tender, non distended Neuro: motor grossly intact Psych: impaired Objective Data Current Medications Generic Name Dose Route Start Last Admin Trade Name Freq PRN Reason Stop Dose Admin Acetaminophen 650 mg 08/01/20 12:51 08/02/20 00:25 Acetaminophen 325 Mg Tablet PO 650 mg Q6H PRN Administration pain, fever Acetaminophen 325 mg 08/03/20 01:30 08/03/20 02:00 Acetaminophen 325 Mg Supp.Rect MT 325 mg Q6H PRN Administration Fever Albuterol Sulfate 1 puff 08/01/20 12:59 Albuterol Sulfate 90 Mcg 8 Gm Inhaler INHALE RQ4H PRN shortness of breath Aspirin 81 mg 08/01/20 09:00 08/03/20 11:09 Aspirin 81 Mg Tab.Chew PO 81 mg DAILY LUZ MARINA Administration Atorvastatin Calcium 80 mg 07/31/20 21:00 08/02/20 20:42 Atorvastatin Calcium 80 Mg Tablet PO 80 mg BEDTIME LUZ MARINA Administration Benzonatate 100 mg 07/31/20 03:14 Benzonatate 100 Mg Capsule PO Q6H PRN Cough Dexamethasone Sodium Phosphate 6 mg 08/03/20 09:00 Dexamethasone Sod Phosphate/Pf 10 Mg/Ml Vial IVPUSH DAILY LUZ MARINA Escitalopram Oxalate 20 mg 08/01/20 09:00 08/03/20 11:09 Escitalopram Oxalate 20 Mg Tablet PO 20 mg DAILY LUZ MARINA Administration Piperacillin Sod/Tazobactam 50 mls @ 100 mls/hr 07/30/20 06:00 08/03/20 07:35 Sod 3.375 gm/ Sodium Chloride IV Infused Q6H [facility] Infusion Doxycycline Hyclate 100 mg/ 250 mls @ 166.67 mls/hr 07/31/20 13:00 08/03/20 03:05 Sodium Chloride IV Infused Q12H [facility] Infusion Metoprolol Tartrate 12.5 mg 07/31/20 21:00 08/03/20 11:09 Metoprolol Tartrate 12.5 Mg Halftab PO 12.5 mg BID [facility] Administration Protocol Warfarin Sodium 4 mg 08/01/20 18:00 08/01/20 19:32 Warfarin Sodium 4 Mg Tablet PO Not Given DAILY@1800 [facility] Labs CBC & Chem 7: 08/03/20 06:12 08/03/20 06:12 Microbiology Microbiology Results: Microbiology 07/29/20 16:48 Blood - Venous Blood Culture - Preliminary No growth after 48 hours. 07/29/20 16:14 Blood - Venous Blood Culture - Preliminary No growth after 48 hours. Assessment and Plan (1) Sepsis: Status: Acute Assessment and Plan: This is a 74 yo M from SNF (previosly at home with significant other) who was admitted to the ICU for septic shock related aspiration/hcap requiring broad spectrum antibiotics and vasopressors. He was titrated off pressors, vancomcyin discontinued and trasnferred out of the intensive care unit. 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
[2020-08-03] MEDS: Warfarin Sodium 4 MG TABLET PO (18:19)
[2020-08-04 00:30] VITALS: BP 123/68; PULSE 59; RESP 16; TEMP 36.4; O2SAT 95
[2020-08-04 03:56] VITALS: BP 135/59; PULSE 76; RESP 15; TEMP 37; O2SAT 94
[2020-08-04] MEDS: Piperacillin Sodium/Tazobactam 3.375 GM in 0.9 % Sodium Chloride 50 ML IV ×3 (05:24→17:04)
[2020-08-04 06:51] LABS: Hemoglobin 10.8 g/dl (14.0-18.0); Imm Gran Abs Auto 0.04 X10*3/uL (0.00-0.03); Imm Gran Pct Auto 0.5 % (0.0-0.4); Lymphocytes Absolute Auto 0.3 X10*3/uL (1.2-4.9); Lymphocytes Percent Auto 4.3 % (20-40); MANUAL DIFF FLAG SCAN; Mean Corpuscular HGB Conc 33.8 g/dl (31.0-36.0); Mean Corpuscular Hemoglobin 32.8 pg (27.0-33.0); Mean Corpuscular Volume 97.3 fL (80-98); Monocytes Absolute Auto 0.4 X10*3/uL (0.1-1.2); Monocytes Percent Auto 5.7 % (2-11); Neutrophils Absolute Auto 6.9 X10*3/uL (2.0-8.3); Neutrophils Percent Auto 89.5 % (45-73); Platelet Count 197 X10*3/uL (160-400); Red Blood Count 3.29 X10*6/uL (4.60-5.80); Red Cell Distribution Width 12.7 % (11.0-16.0); SCAN SMEAR FLAG 1; White Blood Count 7.7 X10*3/uL (4.8-10.8)
[2020-08-04 06:55] LABS: INTERNATIONAL NORM RATIO 2.8 (0.9-1.1); Prothrombin Time 33.4 SEC (10.8-13.0)
[2020-08-04 07:18] LABS: Anion Gap 14 (12-20); Blood Urea Nitrogen 27 mg/dL (9-16); Carbon Dioxide 23 mmol/L (22-29); Chloride 107 mmol/L (96-108); Creatinine Clr Calc Pharmacy 95.8; Estimated Glomerular Filt Rate > 60; Glucose Fasting 104 mg/dL (60-99); Potassium 3.8 mmol/l (3.3-5.1); Sodium 140 mmol/L (135-145)
[2020-08-04 07:55] VITALS: BP 131/83; PULSE 110; RESP 20; TEMP 36.7; O2SAT 94
[2020-08-04] MEDS: Metoprolol Tartrate 12.5 MG HALFTAB PO ×2 (08:34→20:54)
[2020-08-04] MEDS: Aspirin 81 MG TAB.CHEW PO (08:34)
[2020-08-04] MEDS: Escitalopram Oxalate 20 MG TABLET PO (08:34)
[2020-08-04 10:12] LABS: SLIDE REVIEW VERIFIED
--- NOTE | 2020-08-04 10:49 | P.PNIM_ITS ---
Subjective Subjective Date of Service: 08/04/20 Interval History: no complaints, had 6 beat nsvt Cardiovascular Cardiovascular: Reports no additional cardiovascular complaints Respiratory Respiratory: Reports no additional respiratory complaints Physical Exam Vital Signs: Vital Signs: Last Vital Signs Temp 98.0 F 08/04/20 07:55 Pulse 110 H 08/04/20 07:55 Resp 20 08/04/20 07:55 BP 131/83 08/04/20 07:55 Pulse Ox 94 08/04/20 07:55 Body Mass Index 23.1 General: AO X 3, no acute distress, looking better today Resp: CTA bilateral CVS: S1,S2,RRR GI: soft, non tender, non distended Neuro: motor grossly intact Psych: appropriate affect Objective Data Current Medications Generic Name Dose Route Start Last Admin Trade Name Freq PRN Reason Stop Dose Admin Acetaminophen 650 mg 08/01/20 12:51 08/02/20 00:25 Acetaminophen 325 Mg Tablet PO 650 mg Q6H PRN Administration pain, fever Acetaminophen 325 mg 08/03/20 01:30 08/03/20 02:00 Acetaminophen 325 Mg Supp.Rect IA 325 mg Q6H PRN Administration Fever Albuterol Sulfate 1 puff 08/01/20 12:59 Albuterol Sulfate 90 Mcg 8 Gm Inhaler INHALE RQ4H PRN shortness of breath Aspirin 81 mg 08/01/20 09:00 08/04/20 08:34 Aspirin 81 Mg Tab.Chew PO 81 mg DAILY [facility]INA Administration Atorvastatin Calcium 80 mg 07/31/20 21:00 08/03/20 21:00 Atorvastatin Calcium 80 Mg Tablet PO Not Given BEDTIME [facility] MARINA Benzonatate 100 mg 07/31/20 03:14 Benzonatate 100 Mg Capsule PO Q6H PRN Cough Dexamethasone Sodium Phosphate 6 mg 08/03/20 09:00 08/04/20 08:35 Dexamethasone Sod Phosphate/Pf 10 Mg/Ml Vial IVPUSH 6 mg DAILY [facility]INA Administration Escitalopram Oxalate 20 mg 08/01/20 09:00 08/04/20 08:34 Escitalopram Oxalate 20 Mg Tablet PO 20 mg DAILY [facility]INA Administration Piperacillin Sod/Tazobactam 50 mls @ 100 mls/hr 07/30/20 06:00 08/04/20 05:54 Sod 3.375 gm/ Sodium Chloride IV Infused Q6H [facility] Infusion Doxycycline Hyclate 100 mg/ 250 mls @ 166.67 mls/hr 07/31/20 13:00 08/04/20 01:05 Sodium Chloride IV Infused Q12H [facility] Infusion Metoprolol Tartrate 12.5 mg 07/31/20 21:00 08/04/20 08:34 Metoprolol Tartrate 12.5 Mg Halftab PO 12.5 mg BID [facility] MARINA Administration Protocol Warfarin Sodium 4 mg 08/01/20 18:00 08/03/20 18:19 Warfarin Sodium 4 Mg Tablet PO 4 mg DAILY@1800 [facility] Administration Labs CBC & Chem 7: 08/04/20 06:03 08/04/20 06:03 Microbiology Microbiology Results: Microbiology 07/29/20 16:48 Blood - Venous Blood Culture - Final No growth after 5 days. 07/29/20 16:14 Blood - Venous Blood Culture - Final No growth after 5 days. Assessment and Plan (1) Sepsis: Status: Acute Assessment and Plan: This is a 74 yo M from SNF (previosly at home with significant other) who was admitted to the ICU for septic shock related aspiration/hcap requiring broad spectrum antibiotics and vasopressors. He was titrated off pressors, vancomcyin discontinued and trasnferred out of the intensive care unit. 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
[2020-08-04 11:33] VITALS: BP 94/57; PULSE 67; RESP 18; TEMP 36.8; O2SAT 7
--- NOTE | 2020-08-04 11:56 | MHC.SLORD ---
Per RN, patient is tolerating current recommendation PUREED (NDD1) solids and NECTAR THICK liquids. He is recommended total supervision due to impulsivity. This is reportedly his baseline diet. [employer]CHOOL ASSISTANT to follow up tomorrow morning. Name: Ray Silverio Date of : 1945 Age: 74 Date of Registration: 07/30/20 Speech Language Pathology Order Status:
[2020-08-04] MEDS: Doxycycline Hyclate 100 MG in 0.9 % Sodium Chloride 250 ML 166.67 MG IV (12:56)
[2020-08-04 15:20] VITALS: BP 97/55; PULSE 70; RESP 19; TEMP 36.1; O2SAT 96
[2020-08-04] MEDS: Warfarin Sodium 2 MG TABLET PO (17:03)
[2020-08-04 19:14] VITALS: BP 112/58; PULSE 80; RESP 19; TEMP 36; O2SAT 93
[2020-08-04] MEDS: Atorvastatin Calcium 80 MG TABLET PO (20:54)
[2020-08-05] VITALS (9 sets, daily range): BP systolic 108–136; BP diastolic 59–76; PULSE 58–82; RESP 16–20; TEMP 36.3–37.5; O2SAT 91–94
[2020-08-05] MEDS: Piperacillin Sodium/Tazobactam 3.375 GM in 0.9 % Sodium Chloride 50 ML IV ×4 (02:21→18:35)
[2020-08-05] MEDS: Doxycycline Hyclate 100 MG in 0.9 % Sodium Chloride 250 ML 166.67 MG IV ×2 (02:21→14:19)
[2020-08-05 07:01] LABS: Hematocrit 31.2 % (42-52); Hemoglobin 10.2 g/dl (14.0-18.0); Imm Gran Abs Auto 0.05 X10*3/uL (0.00-0.03); Imm Gran Pct Auto 0.7 % (0.0-0.4); Lymphocytes Absolute Auto 0.5 X10*3/uL (1.2-4.9); Lymphocytes Percent Auto 7.4 % (20-40); MANUAL DIFF FLAG SCAN; Mean Corpuscular HGB Conc 32.7 g/dl (31.0-36.0); Mean Corpuscular Hemoglobin 32.7 pg (27.0-33.0); Mean Platelet Volume 10.6 fL (9.4-12.4); Monocytes Absolute Auto 0.5 X10*3/uL (0.1-1.2); Neutrophils Absolute Auto 6.1 X10*3/uL (2.0-8.3); Neutrophils Percent Auto 84.9 % (45-73); Platelet Count 241 X10*3/uL (160-400); Red Blood Count 3.12 X10*6/uL (4.60-5.80); Red Cell Distribution Width 13.1 % (11.0-16.0); SCAN SMEAR FLAG 1; White Blood Count 7.2 X10*3/uL (4.8-10.8)
[2020-08-05 07:10] LABS: INTERNATIONAL NORM RATIO 3.7 (0.9-1.1); Prothrombin Time 44.2 SEC (10.8-13.0)
[2020-08-05 07:35] LABS: Anion Gap 12 (12-20); Blood Urea Nitrogen 29 mg/dL (9-16); Calcium 7.9 mg/dL (8.4-10.2); Carbon Dioxide 23 mmol/L (22-29); Chloride 110 mmol/L (96-108); Creatinine Clr Calc Pharmacy 88.9; Estimated Glomerular Filt Rate > 60; Glucose Fasting 86 mg/dL (60-99); Magnesium 2.3 mg/dL (1.6-2.6); Potassium 3.9 mmol/l (3.3-5.1); Sodium 141 mmol/L (135-145)
[2020-08-05 08:12] LABS: SLIDE REVIEW VERIFIED
[2020-08-05] MEDS: Metoprolol Tartrate 12.5 MG HALFTAB PO ×2 (09:51→21:22)
[2020-08-05] MEDS: Escitalopram Oxalate 20 MG TABLET PO (09:52)
[2020-08-05] MEDS: Aspirin 81 MG TAB.CHEW PO (09:52)
--- NOTE | 2020-08-05 11:30 | P.PNIM_ITS ---
Subjective Subjective Date of Service: 08/05/20 Interval History: feels ok Cardiovascular Cardiovascular: Reports no additional cardiovascular complaints Respiratory Respiratory: Reports no additional respiratory complaints Physical Exam Vital Signs: Vital Signs: Last Vital Signs Temp 97.4 F 08/05/20 11:10 Pulse 69 08/05/20 11:10 Resp 20 08/05/20 11:10 BP 136/60 08/05/20 11:10 Pulse Ox 94 08/05/20 11:10 Body Mass Index 23.1 General: AO X 3, no acute distress Resp: CTA bilateral CVS: S1,S2,RRR GI: soft, non tender, non distended Neuro: motor grossly intact Psych: appropriate affect Objective Data Current Medications Generic Name Dose Route Start Last Admin Trade Name Freq PRN Reason Stop Dose Admin Acetaminophen 650 mg 08/01/20 12:51 08/02/20 00:25 Acetaminophen 325 Mg Tablet PO 650 mg Q6H PRN Administration pain, fever Acetaminophen 325 mg 08/03/20 01:30 08/03/20 02:00 Acetaminophen 325 Mg Supp.Rect NE 325 mg Q6H PRN Administration Fever Albuterol Sulfate 1 puff 08/01/20 12:59 Albuterol Sulfate 90 Mcg 8 Gm Inhaler INHALE RQ4H PRN shortness of breath Aspirin 81 mg 08/01/20 09:00 08/05/20 09:52 Aspirin 81 Mg Tab.Chew PO 81 mg DAILY [facility]INA Administration Atorvastatin Calcium 80 mg 07/31/20 21:00 08/04/20 20:54 Atorvastatin Calcium 80 Mg Tablet PO 80 mg BEDTIME [facility]INA Administration Benzonatate 100 mg 07/31/20 03:14 Benzonatate 100 Mg Capsule PO Q6H PRN Cough Dexamethasone Sodium Phosphate 6 mg 08/03/20 09:00 08/05/20 09:52 Dexamethasone Sod Phosphate/Pf 10 Mg/Ml Vial IVPUSH 6 mg DAILY LUZ MARINA Administration Escitalopram Oxalate 20 mg 08/01/20 09:00 08/05/20 09:52 Escitalopram Oxalate 20 Mg Tablet PO 20 mg DAILY LUZ MARINA Administration Piperacillin Sod/Tazobactam 50 mls @ 100 mls/hr 07/30/20 06:00 08/05/20 06:36 Sod 3.375 gm/ Sodium Chloride IV Infused Q6H [facility] Infusion Doxycycline Hyclate 100 mg/ 250 mls @ 166.67 mls/hr 07/31/20 13:00 08/05/20 04:34 Sodium Chloride IV Infused Q12H [facility] Infusion Metoprolol Tartrate 12.5 mg 07/31/20 21:00 08/05/20 09:51 Metoprolol Tartrate 12.5 Mg Halftab PO 12.5 mg BID [facility] Administration Protocol Warfarin Sodium 2 mg 08/04/20 18:00 08/04/20 17:03 Warfarin Sodium 2 Mg Tablet PO 2 mg DAILY@1800 [facility] Administration Labs CBC & Chem 7: 08/05/20 06:15 08/05/20 06:16 Microbiology Microbiology Results: Microbiology 07/29/20 16:48 Blood - Venous Blood Culture - Final No growth after 5 days. 07/29/20 16:14 Blood - Venous Blood Culture - Final No growth after 5 days. Assessment and Plan (1) Sepsis: Status: Acute Assessment and Plan: This is a 74 yo M from SNF (previosly at home with significant other) who was admitted to the ICU for septic shock related aspiration/hcap requiring broad spectrum antibiotics and vasopressors. He was titrated off pressors, vancomcyin discontinued and trasnferred out of the intensive care unit. 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
--- NOTE | 2020-08-05 13:34 | MHC.CM.PN ---
Male 74 DX Covid+ DP return to STR@ [facility] via BLS. CM will follow.
[2020-08-05] MEDS: Atorvastatin Calcium 80 MG TABLET PO (21:22)
--- NOTE | 2020-08-05 22:56 | PC.NURSE ---
dressing on right central line had become loose and non adherent. Removed dressing, shaved area, applied skin prep and applied new dressing using sterile technique. Pt tolerated well and is resting quietly.
[2020-08-06] VITALS (11 sets, daily range): BP systolic 111–156; BP diastolic 59–82; PULSE 52–85; RESP 16–20; TEMP 36.1–36.7; O2SAT 93–99; BMI 20.8
[2020-08-06] MEDS: Doxycycline Hyclate 100 MG in 0.9 % Sodium Chloride 250 ML 166.67 MG IV ×2 (00:45→13:03)
[2020-08-06] MEDS: Piperacillin Sodium/Tazobactam 3.375 GM in 0.9 % Sodium Chloride 50 ML IV ×2 (05:52)
[2020-08-06 06:53] LABS: Hematocrit 33.1 % (42-52); Hemoglobin 10.8 g/dl (14.0-18.0); Imm Gran Abs Auto 0.03 X10*3/uL (0.00-0.03); Imm Gran Pct Auto 0.6 % (0.0-0.4); Lymphocytes Absolute Auto 0.5 X10*3/uL (1.2-4.9); Lymphocytes Percent Auto 10.3 % (20-40); MANUAL DIFF FLAG SCAN; Mean Corpuscular HGB Conc 32.6 g/dl (31.0-36.0); Mean Corpuscular Volume 98.2 fL (80-98); Mean Platelet Volume 10.6 fL (9.4-12.4); Monocytes Absolute Auto 0.3 X10*3/uL (0.1-1.2); Monocytes Percent Auto 5.1 % (2-11); Neutrophils Absolute Auto 4.2 X10*3/uL (2.0-8.3); Platelet Count 265 X10*3/uL (160-400); Red Blood Count 3.37 X10*6/uL (4.60-5.80); Red Cell Distribution Width 12.9 % (11.0-16.0); SCAN SMEAR FLAG 1; White Blood Count 4.9 X10*3/uL (4.8-10.8)
[2020-08-06 07:10] LABS: INTERNATIONAL NORM RATIO 3.9 (0.9-1.1); Prothrombin Time 47.4 SEC (10.8-13.0)
[2020-08-06 07:11] LABS: Anion Gap 14 (12-20); Blood Urea Nitrogen 23 mg/dL (9-16); Carbon Dioxide 23 mmol/L (22-29); Chloride 107 mmol/L (96-108); Creatinine Clr Calc Pharmacy 96.5; Estimated Glomerular Filt Rate > 60; Glucose Fasting 97 mg/dL (60-99); Potassium 4.1 mmol/l (3.3-5.1); Sodium 140 mmol/L (135-145)
[2020-08-06 07:13] LABS: D Dimer 382 NG/ML
[2020-08-06 07:45] LABS: SLIDE REVIEW VERIFIED
[2020-08-06] MEDS: Escitalopram Oxalate 20 MG TABLET PO (07:45)
[2020-08-06] MEDS: Aspirin 81 MG TAB.CHEW PO (07:45)
[2020-08-06] MEDS: Metoprolol Tartrate 12.5 MG HALFTAB PO (07:47)
--- NOTE | 2020-08-06 10:49 | P.PNIM_ITS ---
Subjective Subjective Date of Service: 08/06/20 Interval History: no complaints Cardiovascular Cardiovascular: Reports no additional cardiovascular complaints Gastrointestinal Gastrointestinal: Reports no additional gastrointestinal complaints Physical Exam Vital Signs: Vital Signs: Last Vital Signs Temp 97.2 F 08/06/20 07:39 Pulse 85 08/06/20 07:47 Resp 19 08/06/20 07:39 BP 146/73 H 08/06/20 07:47 Pulse Ox 96 08/06/20 08:18 Body Mass Index 20.8 General: AO X 3, no acute distress Resp: CTA bilateral CVS: S1,S2,RRR GI: soft, non tender, non distended Neuro: motor grossly intact Psych: appropriate affect Objective Data Current Medications Generic Name Dose Route Start Last Admin Trade Name Freq PRN Reason Stop Dose Admin Acetaminophen 650 mg 08/01/20 12:51 08/02/20 00:25 Acetaminophen 325 Mg Tablet PO 650 mg Q6H PRN Administration pain, fever Acetaminophen 325 mg 08/03/20 01:30 08/03/20 02:00 Acetaminophen 325 Mg Supp.Rect CO 325 mg Q6H PRN Administration Fever Albuterol Sulfate 1 puff 08/01/20 12:59 Albuterol Sulfate 90 Mcg 8 Gm Inhaler INHALE RQ4H PRN shortness of breath Aspirin 81 mg 08/01/20 09:00 08/06/20 07:45 Aspirin 81 Mg Tab.Chew PO 81 mg DAILY [facility] Administration Atorvastatin Calcium 80 mg 07/31/20 21:00 08/05/20 21:22 Atorvastatin Calcium 80 Mg Tablet PO 80 mg BEDTIME [facility] Administration Benzonatate 100 mg 07/31/20 03:14 Benzonatate 100 Mg Capsule PO Q6H PRN Cough Dexamethasone Sodium Phosphate 6 mg 08/03/20 09:00 08/06/20 07:45 Dexamethasone Sod Phosphate/Pf 10 Mg/Ml Vial IVPUSH 6 mg DAILY [facility]Z [facility]INA Administration Escitalopram Oxalate 20 mg 08/01/20 09:00 08/06/20 07:45 Escitalopram Oxalate 20 Mg Tablet PO 20 mg DAILY [facility]Z MARINA Administration Doxycycline Hyclate 100 mg/ 250 mls @ 166.67 mls/hr 07/31/20 13:00 08/06/20 02:28 Sodium Chloride IV Infused Q12H [facility] Infusion Metoprolol Tartrate 12.5 mg 07/31/20 21:00 08/06/20 07:47 Metoprolol Tartrate 12.5 Mg Halftab PO 12.5 mg BID [facility] Administration Protocol Warfarin Sodium 2 mg 08/04/20 18:00 08/04/20 17:03 Warfarin Sodium 2 Mg Tablet PO 2 mg DAILY@1800 [facility] Administration Labs CBC & Chem 7: 08/06/20 06:18 08/06/20 06:18 Microbiology Microbiology Results: Microbiology 07/29/20 16:48 Blood - Venous Blood Culture - Final No growth after 5 days. 07/29/20 16:14 Blood - Venous Blood Culture - Final No growth after 5 days. Assessment and Plan (1) Sepsis: Status: Acute Assessment and Plan: This is a 74 yo M from SNF (previosly at home with significant other) who was admitted to the ICU for septic shock related aspiration/hcap requiring broad spectrum antibiotics and vasopressors. He was titrated off pressors, vancomcyin discontinued and trasnferred out of the intensive care unit. 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
--- NOTE | 2020-08-06 18:08 | PC.NURSE ---
was able to wean pt back to 2L nasal cannula (his baseline o2) sat 94-99% Pt HR today was on low end - afib on the monitor - HR 39-60s most of the day. Mostly 40s when asleep. notified MD of HR (pt takes metoprolol 12.5 BID) -Md states if nothing changes ok to hold tonight- will report off to oncoming RN to closely watch HR on telemetry. Pt is very vague at times - no complaints - no symptomatic bradycardia at this time. will cont to monitor
[2020-08-06] MEDS: Atorvastatin Calcium 80 MG TABLET PO (20:42)
--- NOTE | 2020-08-06 21:05 | PC.NURSE ---
Addendum entered by Shavon Toth RN 08/07/20 02:15: Patient sats 94-95%, oxygen titrated down to 4L. Addendum entered by Shavon Toth RN 08/07/20 00:37: Patient's sats 94-96% on 6L, titrated to 5L NC at this time. Original Note: Patient's O2 sats consistently dropping into the 80's on 2L nasal cannula. Oxygen slowly increased from 2L via NC to 6L NC over a couple of hours and pt repositioned to high fowlers. Sats are 90%at this time on 6L NC, will continue to monitor and adjust as needed.
[2020-08-07] VITALS (17 sets, daily range): BP systolic 112–159; BP diastolic 62–74; PULSE 35–88; RESP 16–20; TEMP 36–37.1; O2SAT 86–98; BMI 21.1
--- NOTE | 2020-08-07 | XR_ITS ---
EXAMINATION: XR CHEST CLINICAL INFORMATION: Worsening hypoxia. COMPARISON: Most recent chest radiograph dated 08/02/2020. TECHNIQUE: Frontal view of the chest was obtained. FINDINGS: Right-sided central venous catheter in unchanged position. Redemonstration of sternal wires. Patchy bilateral airspace opacities, increased when compared to the prior examination. Findings are most significant within the left upper lobe. No pneumothorax. No pleural effusion. Stable cardiomediastinal silhouette. XR/XR chest 1V IMPRESSION: Patchy bilateral airspace opacities, increased when compared to the prior examination, most prominent within the left upper lobe. Findings can be seen in the setting of an infectious or inflammatory process, including viral pneumonia.
[2020-08-07] MEDS: Doxycycline Hyclate 100 MG in 0.9 % Sodium Chloride 250 ML 166.67 MG IV (00:32)
--- NOTE | 2020-08-07 05:15 | PC.NURSE ---
Patient had a 2.44 second pause. Pt assessed, easily arrousable, alert self (baseline). Dr Tripp notified via [employer]. No new orders at this time.
[2020-08-07 07:35] LABS: MANUAL DIFF FLAG NO
[2020-08-07 07:39] LABS: Basophils Percent Auto 0.1 % (0-2); Eosinophils Percent Auto 0.1 % (0-4); Hematocrit 30.3 % (42-52); Imm Gran Abs Auto 0.08 X10*3/uL (0.00-0.03); Imm Gran Pct Auto 0.9 % (0.0-0.4); Lymphocytes Absolute Auto 1.1 X10*3/uL (1.2-4.9); Lymphocytes Percent Auto 11.8 % (20-40); Mean Corpuscular Hemoglobin 32.1 pg (27.0-33.0); Mean Corpuscular Volume 97.1 fL (80-98); Mean Platelet Volume 10.3 fL (9.4-12.4); Monocytes Absolute Auto 0.4 X10*3/uL (0.1-1.2); Monocytes Percent Auto 4.4 % (2-11); Neutrophils Absolute Auto 7.7 X10*3/uL (2.0-8.3); Neutrophils Percent Auto 82.7 % (45-73); Platelet Count 295 X10*3/uL (160-400); Red Blood Count 3.12 X10*6/uL (4.60-5.80); Red Cell Distribution Width 12.7 % (11.0-16.0); White Blood Count 9.3 X10*3/uL (4.8-10.8)
[2020-08-07 07:42] LABS: Prothrombin Time 48.1 SEC (10.8-13.0)
[2020-08-07 08:10] LABS: Anion Gap 13 (12-20); Blood Urea Nitrogen 22 mg/dL (9-16); Carbon Dioxide 23 mmol/L (22-29); Chloride 106 mmol/L (96-108); Creatinine Clr Calc Pharmacy 107.2; Estimated Glomerular Filt Rate > 60; Glucose Fasting 68 mg/dL (60-99); Sodium 138 mmol/L (135-145)
[2020-08-07] MEDS: Escitalopram Oxalate 20 MG TABLET PO (09:04)
[2020-08-07] MEDS: Aspirin 81 MG TAB.CHEW PO (09:04)
--- NOTE | 2020-08-07 10:40 | HO.PM.IMPN ---
Subjective Subjective Date of Service: 08/07/20 Interval History: feels well Cardiovascular Cardiovascular: Reports no additional cardiovascular complaints Gastrointestinal Gastrointestinal: Reports no additional gastrointestinal complaints Physical Exam Vital Signs: Vital Signs: Last Vital Signs Temp 98.7 F 08/07/20 08:00 Pulse 58 08/07/20 08:00 Resp 16 08/07/20 08:00 BP 148/69 H 08/07/20 08:00 Pulse Ox 96 08/07/20 10:37 Body Mass Index 21.1 General: AO X 3, no acute distress Resp: CTA bilateral CVS: S1,S2,RRR GI: soft, non tender, non distended Neuro: motor grossly intact Psych: appropriate affect Objective Data Current Medications Generic Name Dose Route Start Last Admin Trade Name Freq PRN Reason Stop Dose Admin Acetaminophen 650 mg 08/01/20 12:51 08/02/20 00:25 Acetaminophen 325 Mg Tablet PO 650 mg Q6H PRN Administration pain, fever Acetaminophen 325 mg 08/03/20 01:30 08/03/20 02:00 Acetaminophen 325 Mg Supp.Rect MN 325 mg Q6H PRN Administration Fever Albuterol Sulfate 1 puff 08/01/20 12:59 Albuterol Sulfate 90 Mcg 8 Gm Inhaler INHALE RQ4H PRN shortness of breath Aspirin 81 mg 08/01/20 09:00 08/07/20 09:04 Aspirin 81 Mg Tab.Chew PO 81 mg DAILY LUZ MARINA Administration Atorvastatin Calcium 80 mg 07/31/20 21:00 08/06/20 20:42 Atorvastatin Calcium 80 Mg Tablet PO 80 mg BEDTIME LUZ MARINA Administration Benzonatate 100 mg 07/31/20 03:14 Benzonatate 100 Mg Capsule PO Q6H PRN Cough Dexamethasone Sodium Phosphate 6 mg 08/03/20 09:00 08/07/20 09:04 Dexamethasone Sod Phosphate/Pf 10 Mg/Ml Vial IVPUSH 6 mg DAILY LUZ MARINA Administration Escitalopram Oxalate 20 mg 08/01/20 09:00 08/07/20 09:04 Escitalopram Oxalate 20 Mg Tablet PO 20 mg DAILY LUZ MARINA Administration Doxycycline Hyclate 100 mg/ 250 mls @ 166.67 mls/hr 07/31/20 13:00 08/07/20 02:04 Sodium Chloride IV Infused Q12H LUZ MARINA Infusion Warfarin Sodium 2 mg 08/04/20 18:00 08/04/20 17:03 Warfarin Sodium 2 Mg Tablet PO 2 mg DAILY@1800 LUZ MARINA Administration Labs CBC & Chem 7: 08/07/20 06:46 08/07/20 06:46 Microbiology Microbiology Results: Microbiology 07/29/20 16:48 Blood - Venous Blood Culture - Final No growth after 5 days. 07/29/20 16:14 Blood - Venous Blood Culture - Final No growth after 5 days. Assessment and Plan (1) Sepsis: Status: Acute Assessment and Plan: This is a 74 yo M from SNF (previosly at home with significant other) who was admitted to the ICU for septic shock related aspiration/hcap requiring broad spectrum antibiotics and vasopressors. He was titrated off pressors, vancomcyin discontinued and trasnferred out of the intensive care unit. 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
--- NOTE | 2020-08-07 19:53 | PC.NURSE ---
Addendum entered by Malorie Kasper RN 08/07/20 19:59: new order for stat CXR Original Note: pt had been dim/fine crackles most of the day - sat mid to high 90s on his normal 2L of NC o2. Around 1700 pt started to desat ~86% - see vitals for history of titration/times - but had to titrate him up to 4L of o2 to maintain sat of 90%. Assessing pt- worked with him on incentive e- due to mental status doesnt really comprehend how to do on own so needs help but does a good job when prompted- got to ~1000-1250ml. Takes good breaths with the IS but not at rest- more on the shallow side, Listened to lungs - more rhonchi and coarse than this am. He does has a hx of aspiration, is a 1:1 feed -RN fed him tonight - no coughing or major issues but did hear some expiratory wheezing in uppers. pt does hold food in his mouth and needs frequent reminders to swallow. Notified night hospitalist of current situation to keep team informed. Will try to wean o2 is possible but currently on 4L NC.
[2020-08-07] MEDS: Atorvastatin Calcium 80 MG TABLET PO (20:58)
[2020-08-08 03:38] VITALS: BP 138/68; PULSE 54; RESP 18; TEMP 36.3; O2SAT 95
[2020-08-08 06:00] VITALS: BMI 22.4
[2020-08-08 06:50] LABS: INTERNATIONAL NORM RATIO 2.7 (0.9-1.1); Prothrombin Time 32.4 SEC (10.8-13.0)
[2020-08-08 08:00] VITALS: BP 121/73; PULSE 52; RESP 16; TEMP 36.4; O2SAT 93
[2020-08-08] MEDS: Aspirin 81 MG TAB.CHEW PO (09:03)
[2020-08-08] MEDS: Escitalopram Oxalate 20 MG TABLET PO (09:03)
--- NOTE | 2020-08-08 11:04 | P.PNIM_ITS ---
Subjective Subjective Date of Service: 08/08/20 Interval History: no changes Cardiovascular Cardiovascular: Reports no additional cardiovascular complaints Gastrointestinal Gastrointestinal: Reports no additional gastrointestinal complaints Physical Exam Vital Signs: Vital Signs: Last Vital Signs Temp 97.6 F 08/08/20 08:00 Pulse 52 08/08/20 08:00 Resp 16 08/08/20 08:00 BP 121/73 08/08/20 08:00 Pulse Ox 93 08/08/20 08:00 Body Mass Index 22.4 General: AO X 3, no acute distress Resp: CTA bilateral CVS: S1,S2,RRR GI: soft, non tender, non distended Neuro: motor grossly intact Psych: appropriate affect Objective Data Current Medications Generic Name Dose Route Start Last Admin Trade Name Freq PRN Reason Stop Dose Admin Acetaminophen 650 mg 08/01/20 12:51 08/02/20 00:25 Acetaminophen 325 Mg Tablet PO 650 mg Q6H PRN Administration pain, fever Acetaminophen 325 mg 08/03/20 01:30 08/03/20 02:00 Acetaminophen 325 Mg Supp.Rect NM 325 mg Q6H PRN Administration Fever Albuterol Sulfate 1 puff 08/01/20 12:59 Albuterol Sulfate 90 Mcg 8 Gm Inhaler INHALE RQ4H PRN shortness of breath Aspirin 81 mg 08/01/20 09:00 08/08/20 09:03 Aspirin 81 Mg Tab.Chew PO 81 mg DAILY LUZ MARINA Administration Atorvastatin Calcium 80 mg 07/31/20 21:00 08/07/20 20:58 Atorvastatin Calcium 80 Mg Tablet PO 80 mg BEDTIME LUZ MARINA Administration Benzonatate 100 mg 07/31/20 03:14 Benzonatate 100 Mg Capsule PO Q6H PRN Cough Dexamethasone Sodium Phosphate 6 mg 08/03/20 09:00 08/08/20 09:03 Dexamethasone Sod Phosphate/Pf 10 Mg/Ml Vial IVPUSH 6 mg DAILY LUZ MARINA Administration Escitalopram Oxalate 20 mg 08/01/20 09:00 08/08/20 09:03 Escitalopram Oxalate 20 Mg Tablet PO 20 mg DAILY LUZ MARINA Administration Warfarin Sodium 2 mg 08/04/20 18:00 08/04/20 17:03 Warfarin Sodium 2 Mg Tablet PO 2 mg DAILY@1800 LUZ MARINA Administration Labs CBC & Chem 7: 08/07/20 06:46 08/07/20 06:46 Microbiology Microbiology Results: Microbiology 07/29/20 16:48 Blood - Venous Blood Culture - Final No growth after 5 days. 07/29/20 16:14 Blood - Venous Blood Culture - Final No growth after 5 days. Assessment and Plan (1) Sepsis: Status: Acute Assessment and Plan: This is a 74 yo M from [facility] (previosly at home with significant other) who was admitted to the ICU for septic shock related aspiration/hcap requiring broad spectrum antibiotics and vasopressors. He was titrated off pressors, vancomcyin discontinued and trasnferred out of the intensive care unit. 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
[2020-08-08 11:41] VITALS: BP 116/61; PULSE 60; RESP 16; TEMP 36.1; O2SAT 97
--- NOTE | 2020-08-08 12:33 | MHC.CM.PN ---
Male 74 DX Covid+ DP is to return to [facility] via BLS. LOS R/T increase need for supplemental oxygen. CM will follow.
[2020-08-08 15:16] VITALS: BP 100/60; PULSE 80; RESP 19; TEMP 36; O2SAT 95
--- NOTE | 2020-08-08 15:28 | PC.NURSE ---
Pt alert to person only, 02 sat 95% on 2L NC. lungs clear in upper lung tucker and dim at bases. 1:1 feed, ate 100% breakfast/lunch. blanchable redness on bilat inner buttucks and bilat heels. barrier cream applied to buttucks, and pt repositioned q 2 hours to maintain skin integrity. inflatable boots applied to elevate heels. pt tolerated well. endorses no discomfort at this time. bruising noted to right lateral side, along with bruising of left thumb. pt denies any pain. md aware.
[2020-08-08] MEDS: Warfarin Sodium 2 MG TABLET PO (19:08)
[2020-08-08 19:18] VITALS: BP 121/74; PULSE 80; RESP 19; TEMP 36; O2SAT 92
[2020-08-08] MEDS: Atorvastatin Calcium 80 MG TABLET PO (22:12)
[2020-08-09] VITALS: BP 133/66; PULSE 56; RESP 18; TEMP 36.4; O2SAT 94
[2020-08-09 04:00] VITALS: BP 132/63; PULSE 57; RESP 18; TEMP 36.3; O2SAT 97
[2020-08-09 06:00] VITALS: BMI 21.0
[2020-08-09 06:28] LABS: MANUAL DIFF FLAG NO
[2020-08-09 06:29] LABS: Basophils Percent Auto 0.1 % (0-2); Eosinophils Percent Auto 0.2 % (0-4); Hematocrit 30.2 % (42-52); Hemoglobin 10.2 g/dl (14.0-18.0); Imm Gran Abs Auto 0.07 X10*3/uL (0.00-0.03); Imm Gran Pct Auto 0.7 % (0.0-0.4); Lymphocytes Absolute Auto 0.8 X10*3/uL (1.2-4.9); Lymphocytes Percent Auto 8.3 % (20-40); Mean Corpuscular HGB Conc 33.8 g/dl (31.0-36.0); Mean Corpuscular Hemoglobin 32.8 pg (27.0-33.0); Mean Corpuscular Volume 97.1 fL (80-98); Mean Platelet Volume 10.3 fL (9.4-12.4); Monocytes Absolute Auto 0.6 X10*3/uL (0.1-1.2); Monocytes Percent Auto 5.8 % (2-11); Neutrophils Absolute Auto 8.4 X10*3/uL (2.0-8.3); Neutrophils Percent Auto 84.9 % (45-73); Platelet Count 365 X10*3/uL (160-400); Red Blood Count 3.11 X10*6/uL (4.60-5.80); Red Cell Distribution Width 12.5 % (11.0-16.0); White Blood Count 9.9 X10*3/uL (4.8-10.8)
[2020-08-09 06:55] LABS: Anion Gap 12 (12-20); Blood Urea Nitrogen 25 mg/dL (9-16); Carbon Dioxide 24 mmol/L (22-29); Chloride 103 mmol/L (96-108); Creatinine Clr Calc Pharmacy 100.4; Estimated Glomerular Filt Rate > 60; Glucose Fasting 77 mg/dL (60-99); Potassium 4.6 mmol/l (3.3-5.1); Sodium 134 mmol/L (135-145)
[2020-08-09 06:56] LABS: INTERNATIONAL NORM RATIO 2.2 (0.9-1.1); Prothrombin Time 26.2 SEC (10.8-13.0)
[2020-08-09 06:58] LABS: D Dimer 307 NG/ML
[2020-08-09 07:55] VITALS: BP 123/60; PULSE 54; RESP 20; TEMP 36.7; O2SAT 95
[2020-08-09] MEDS: Aspirin 81 MG TAB.CHEW PO (09:55)
[2020-08-09] MEDS: Escitalopram Oxalate 20 MG TABLET PO (09:55)
[2020-08-09 11:50] VITALS: BP 101/60; PULSE 55; RESP 20; TEMP 36.8; O2SAT 95
--- NOTE | 2020-08-09 13:05 | PM.DS ---
DS: Providers Provider Date of admission: 07/30/20 00:07 Primary care physician: Anya Bartlett MD DS: Diagnosis Discharge Diagnosis (1) Septic shock: Status: Acute (2) Acute and chronic respiratory failure with hypoxia: Status: Acute (3) COVID-19: Status: Acute (4) H/O mitral valve replacement with mechanical valve: Status: Acute (5) Dementia: Status: Acute (6) Atrial fibrillation: Status: Acute DS: Medications Discharge Medications Home Medications: Home Medications Medication Instructions Recorded Confirmed Baby Aspirin 81 mg PO 07/29/20 Lexapro 20 mg PO 07/29/20 atorvastatin 80 mg PO 07/29/20 benzonatate 100 mg PO Q6-8H PRN 07/29/20 07/29/20 calcium carbonate-vitamin D2 1 tab PO 07/29/20 Previous Rx's Medication Instructions Recorded dexamethasone 8 mg PO DAILY #6 tab 08/09/20 enoxaparin [Lovenox] 70 mg SUBCUT Q12H #0.8 ml 08/09/20 warfarin [Jantoven] 2 mg PO DAILY@1800 30 Days tab 08/09/20 DS: Summary Hospital Course Hospital Course: Patient was initially admitted to the intensive care where he was started on vasopressors and broad-spectrum IV antibiotics for presumed aspiration vs nosocomial pneumonia. He was quickly weaned off pressors and subsequently transitioned to the floor. On the floor he completed his course of antibiotics and was slowly able to be weaned down to 2-3 L by nasal cannula (at about his baseline). He was started on Decadron for his COVID-19 and has few more days left of Decadron 8 mg by mouth. Additionally, patient was continued on his Coumadin for his mechanical mitral valve, his INR 2.2 at the time of discharge and he will be discharged with Lovenox 1 milligram/kilogram twice daily until INR is stable between 2.5-3.5. Patient's hospital course was further complicated by sinus pauses which resolved after his metoprolol was discontinued. 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 Time Spent with Patient Time attestation: Total time spent providing and/or coordinating discharge services: Physical Exam Vital Signs: Vital Signs: Last Vital Signs Temp 98.2 F 08/09/20 11:50 Pulse 55 08/09/20 11:50 Resp 20 08/09/20 11:50 BP 101/60 08/09/20 11:50 Pulse Ox 95 08/09/20 11:50 Body Mass Index 21.0 Const: Other: General - no acute distress, appears comfortable Cardiovascular -s1s2 Lungs - normal respiratory effort, clear to auscultation bilaterally, no wheezing Abdomen - soft, nontender, no rebound or guarding Extremities - no edema bilaterally Neuro - awake and alert, DS: Data Data Completed and Pending Labs on day of discharge: Laboratory Last Values WBC 9.9 X10*3/uL (4.8-10.8) 08/09/20 05:43 RBC 3.11 X10*6/uL (4.60-5.80) L 08/09/20 05:43 Hgb 10.2 g/dl (14.0-18.0) L 08/09/20 05:43 Hct 30.2 % (42-52) L 08/09/20 05:43 MCV 97.1 fL (80-98) 08/09/20 05:43 MCH 32.8 pg (27.0-33.0) 08/09/20 05:43 MCHC 33.8 g/dl (31.0-36.0) 08/09/20 05:43 RDW 12.5 % (11.0-16.0) 08/09/20 05:43 Plt Count 365 X10*3/uL (160-400) 08/09/20 05:43 MPV 10.3 fL (9.4-12.4) 08/09/20 05:43 Immature Gran % (Auto) 0.7 % (0.0-0.4) H 08/09/20 05:43 Neut % (Auto) 84.9 % (45-73) H 08/09/20 05:43 Lymph % (Auto) 8.3 % (20-40) L 08/09/20 05:43 Refugio % (Auto) 5.8 % (2-11) 08/09/20 05:43 Eos % (Auto) 0.2 % (0-4) 08/09/20 05:43 Baso % (Auto) 0.1 % (0-2) 08/09/20 05:43 Lymph # (Auto) 0.8 X10*3/uL (1.2-4.9) L 08/09/20 05:43 Refugio # (Auto) 0.6 X10*3/uL (0.1-1.2) 08/09/20 05:43 Eos # (Auto) 0.0 X10*3/uL (0.0-0.4) 08/09/20 05:43 Baso # (Auto) 0.0 X10*3/uL (0.0-0.2) 08/09/20 05:43 Abs Immat Gran (auto) 0.07 X10*3/uL (0.00-0.03) H 08/09/20 05:43 Absolute Neuts (auto) 8.4 X10*3/uL (2.0-8.3) H 08/09/20 05:43 Absolute Nucleated RBC 0.000 X10*3/uL (0.0-0.012) 08/09/20 05:43 Nucleated RBC % (auto) 0.0 /100WBC (0.0-0.2) 08/09/20 05:43 Neutrophils % (Manual) 92 % (45-73) H 08/01/20 09:28 Band Neutrophils % 0 % (3-5) L 08/01/20 09:28 Lymphocytes % (Manual) 5 % (20-40) L 08/01/20 09:28 Monocytes % (Manual) 3 % (2-11) 08/01/20 09:28 Metamyelocytes % 1 % 07/30/20 05:28 Abs Neuts (Manual) 7.8 X10*3/uL (2.2-7.9) 08/01/20 09:28 Lymphocytes # (Manual) 0.4 X10*3/uL (0.6-4.8) L 08/01/20 09:28 Monocytes # (Manual) 0.3 X10*3/uL (0.0-1.2) 08/01/20 09:28 Metamyelocytes # 0.1 X10*3/uL 07/30/20 05:28 Nucleated RBCs 2 /100WBC (0-0) H 08/01/20 09:28 Platelet Estimate NORMAL (NORMAL) 08/01/20 09:28 Plt Morphology Comment NORMAL 08/01/20 09:28 RBC Morphology NOTED 08/01/20 09:28 Polychromasia 1+ 07/30/20 05:28 Macrocytosis 1+ 07/30/20 05:28 Ovalocytes 1+ 08/01/20 09:28 Rober Cells 1+ 07/30/20 05:28 Acanthocytes (Spur) 1+ 07/30/20 05:28 Smear Tech's Comments VERIFIED 08/06/20 06:18 Smear Path Review SEE NOTE 08/01/20 09:28 PT 26.2 SEC (10.8-13.0) H 08/09/20 05:43 INR 2.2 (0.9-1.1) H 08/09/20 05:43 APTT 37.4 SEC (24.1-38.0) 07/29/20 16:11 D-Dimer 307 NG/ML 08/09/20 05:43 VBG pH 7.35 (7.32-7.43) 07/31/20 06:18 VBG pCO2 40 mmhg 07/31/20 06:18 VBG pO2 16 mmhg 07/31/20 06:18 VBG HCO3 22 mmol/L 07/31/20 06:18 VBG O2 Saturation 19.3 % 07/31/20 06:18 VBG Base Excess -3.7 mmol/L 07/31/20 06:18 Sodium 134 mmol/L (135-145) L 08/09/20 05:43 Potassium 4.6 mmol/l (3.3-5.1) 08/09/20 05:43 Chloride 103 mmol/L (96-108) 08/09/20 05:43 Carbon Dioxide 24 mmol/L (22-29) 08/09/20 05:43 Anion Gap 12 (-20) 08/09/20 05:43 BUN 25 mg/dL (9-16) H 08/09/20 05:43 Creatinine 0.67 mg/dL (0.5-1.4) 08/09/20 05:43 Estim Creat Clear Calc 100.4 08/09/20 05:43 Estimated GFR > 60 08/09/20 05:43 Random Glucose 112 mg/dL (60-115) 08/01/20 09:28 Fasting Glucose 77 mg/dL (60-99) 08/09/20 05:43 Lactic Acid 1.8 mmol/L (0.5-2.0) 07/30/20 00:19 Lactic Acid Fup @ 2Hr 1.2 mmol/L (0.5-2.0) 07/29/20 19:00 Calcium 8.0 mg/dL (8.4-10.2) L 08/09/20 05:43 Phosphorus 3.2 mg/dL (2.7-4.5) 07/30/20 00:19 Magnesium 2.3 mg/dL (1.6-2.6) 08/05/20 06:16 Ferritin 764 ng/mL (20-250) H 07/30/20 00:19 Total Bilirubin 1.7 mg/dL (0.0-1.0) H 08/02/20 05:54 Direct Bilirubin 0.7 mg/dL (0.0-0.5) H 08/02/20 05:54 AST 40 U/L (5-37) H 08/02/20 05:54 ALT 24 U/L (0-40) 08/02/20 05:54 Alkaline Phosphatase 37 U/L (39-117) L 08/02/20 05:54 Troponin I High Sens 45.7 ng/L (<3.5-35.0) H 07/29/20 19:38 C-Reactive Protein 12.12 mg/dL (< or = 0.50) H 07/30/20 05:28 Total Protein 5.3 g/dL (6.5-8.0) L 08/02/20 05:54 Albumin 3.2 g/dL (3.5-5.0) L 08/02/20 05:54 Procalcitonin 10.12 ng/mL 07/31/20 06:10 Urine Color YELLOW 07/29/20 19:38 Urine Appearance CLEAR 07/29/20 19:38 Urine pH 5.5 (5.0-8.0) 07/29/20 19:38 Ur Specific Opal >= 1.030 (1.005-1.025) H 07/29/20 19:38 Urine Protein TRACE MG/DL (NEG-TRACE) 07/29/20 19:38 Urine Glucose (UA) NEG MG/DL (NEG) 07/29/20 19:38 Urine Ketones NEG MG/DL (NEG) 07/29/20 19:38 Urine Blood NEG (NEG) 07/29/20 19:38 Urine Nitrite NEG (NEG) 07/29/20 19:38 Ur Leukocyte Esterase NEG (NEG) 07/29/20 19:38 Urine RBC 0-2 /HPF (0) 07/29/20 19:38 Urine WBC 0 /HPF (0-4) 07/29/20 19:38 Ur Squamous Epith Cells NONE /LPF 07/29/20 19:38 Amorphous Sediment 1+ /LPF 07/29/20 19:38 Urine Bacteria NONE /LPF 07/29/20 19:38 Nasal Screen MRSA (PCR) NEGATIVE (Negative) 07/31/20 15:47 Nasal S. aureus Screen POSITIVE (Negative) A 07/31/20 15:47 Nasal MRSA/S.aureus Interp SEE NOTE 07/31/20 15:47 Coronavirus (PCR) POSITIVE (Negative) A 07/30/20 05:28 Influenza Type A (PCR) NEGATIVE (Negative) 07/30/20 05:28 Influenza Type B (PCR) NEGATIVE (Negative) 07/30/20 05:28 RSV RNA Qual (PCR) NEGATIVE (Negative) 07/30/20 05:28 Discharge Plan Discharge Patient Disposition: Xfer SNF Referrals: Anya Bartlett MD [Primary Care Provider] - Discharge Medications: New dexamethasone 4 mg tablet 8 mg PO DAILY Qty: 6 RF: 0 enoxaparin [Lovenox] 80 mg/0.8 mL syringe 70 mg subcut Q12H Qty: 0.8 RF: 0 warfarin [Jantoven] 2 mg Tablet 2 mg PO DAILY@1800 30 Days RF: 0 Continued benzonatate 100 mg Capsule 100 mg PO Q6-8H PRN (Reason: Cough) RF: 0 calcium carbonate-vitamin D2 600 mg calcium- 200 unit Tablet 1 tab PO RF: 0 Baby Aspirin 81 mg PO RF: 0 Lexapro 20 mg PO RF: 0 atorvastatin 80 mg PO RF: 0 Discontinued lisinopril 2.5 mg PO RF: 0 Discharge Orders: Discharge Order (Routine); Ordered 08/09/20 Ordered By: Villa Trevizo Diet: advance to usual diet Activity on Discharge: As tolerated Visit Report Forms: Patient Portal Discharge page Care Plan Goals: To stay healthy and out of the hospital. Health Concerns: Sepsis COVID Respiratory Failure Mitral Valve replacement Plan of Treatment: Sepsis - completed treatment with antibiotics COVID - finish decadron course Respiratory Failure - down to 2-3L Mitral Valve Replacement - INR goal between 2.5-3.5; take lovenox 1mg/kg twice daily until then, INR 2.2 today
--- NOTE | 2020-08-09 15:13 | MHC.CM.PN ---
DC today,return to [facility]. Booked with [facility]. Notified Tamela Reis of discharge. DC info sent to [facility] via [employer]
--- NOTE | 2020-08-09 15:33 | PC.NURSE ---
Pt orient to self, able to say he was in [place] and that it was July. Pt was up in recliner for morning with 1 assist. Some redness noted on buttocks and bilateral heels, barrier cream applied to buttocks. Pt ate breakfast with 1;1, took pills good crushed in apple sauce. Pt satting 95% on 2L NC, which is his baseline per MD notes. Pt to return back to SNF today at about 1600.
[2020-08-09 15:53] VITALS: BP 118/73; PULSE 68; RESP 20; TEMP 36.6; O2SAT 92
--- NOTE | 2020-08-09 16:38 | PC.NURSE ---
TLC removed from pt r IJ, pt tolertaed well. tip in tact, dsg applied per policy.
== END 2020-08-09 17:00 | disposition skilled nursing facility (03) | DRG 871 ==
LOC: HO.ED 07-30 00:03 → HO.ICU 07-30 00:24 → HO.IMC 07-31 01:13
PROVIDERS: Internal Medicine; Nurse Practitioner Primary Care; Physician Assistant Medical; Admitting Provider Anesthesiology; Emergency Provider Emergency Medicine; PCP Family Medicine Geriatric Medicine; Visit Provider Family Medicine
DX: A41.89 Other specified sepsis (principal); U07.1 COVID-19; J96.21 Acute and chronic respiratory failure with hypoxia; R65.21 Severe sepsis with septic shock; J69.0 Pneumonitis due to inhalation of food and vomit; N17.9 Acute kidney failure, unspecified; I50.22 Chronic systolic (congestive) heart failure; I47.1 Supraventricular tachycardia; I95.9 Hypotension, unspecified; F03.90 Unspecified dementia, unspecified severity, without behavioral disturbance, psychotic disturbance, mood disturbance, and anxiety; E78.5 Hyperlipidemia, unspecified; E86.0 Dehydration; I48.91 Unspecified atrial fibrillation; Z87.891 Personal history of nicotine dependence; Z95.2 Presence of prosthetic heart valve; Z79.01 Long term (current) use of anticoagulants; Z79.82 Long term (current) use of aspirin; Z79.899 Other long term (current) drug therapy
CPT/HCPCS: 0241U; 36415; 71045; 71250; 80048; 80053; 80076; 81001; 82728; 82803; 83605; 83735; 84100; 84145; 84484; 85007; 85025; 85027; 85060; 85379; 85610; 85730; 86140; 87040; 87640; 87641; 92526; 92610; 93005; 94640; 96361; 96365; 96375; 96376; 99284; 99291; J1100; J1650; J2543; J2930; J3370